=== PATIENT | male | born 1970 | race Caucasian/White ===

== ENCOUNTER → 2018-09-22 | Outpatient (CLI) | payer BC ==
--- NOTE | 2018-09-23 08:38 | ECHOF ---
Referral Reason:I25.6 MEASUREMENTS -------- HEIGHT: 190.5 cm WEIGHT: 124.7 kg BP: 128/59 RVIDd: 3.3 cm (< 3.3) IVSd: 1.4 cm (0.6 - 1.1) LVIDd: 4.4 cm (3.9 - 5.3) LVPWd: 1.4 cm (0.6 - 1.1) IVSs: 2.0 cm LVIDs: 2.8 cm LVPWs: 1.9 cm LA Diam: 3.7 cm (2.7 - 3.8) LAESV Index (A-L): 22.68 ml/m Ao Diam: 3.4 cm (2.0 - 3.7) AV Cusp: 2.4 cm (1.5 - 2.6) MV EXCURSION: 17.354 mm (> 18.000) MV EF SLOPE: 119 mm/s (70 - 150) EPSS: 0.3 cm MV E Sigifredo: 0.69 m/s MV DecT: 208 ms MV A Sigifredo: 0.56 m/s MV E/A Ratio: 1.23 FINDINGS -------- Sinus rhythm. This was a technically good study. The left ventricular size is normal. There is moderate concentric left ventricular hypertrophy. O verall left ventricular systolic function is normal with, an EF between 55 - 60 %. The right ventricle is mildly enlarged. Normal LA size by volume 22+/-6 ml/m2. The right atrium is normal in size. Aortic valve is trileaflet and is mildly thickened. The mitral valve is normal. The tricuspid valve appears structurally normal. Trace/mild (physiologic) pulmonic regurgitation. The aortic root size is normal. IVC Not well visulized. There is no pericardial effusion. CONCLUSIONS -------- 1. Sinus rhythm. 2. This was a technically good study. 3. The left ventricular size is normal. 4. There is moderate concentric left ventricular hypertrophy. 5. Overall left ventricular systolic function is normal with, an EF between 55 - 60 %. 6. The right ventricle is mildly enlarged. 7. Normal LA size by volume 22+/-6 ml/m2. 8. The right atrium is normal in size. 9. Aortic valve is trileaflet and is mildly thickened. 10. The mitral valve is normal. 11. The tricuspid valve appears structurally normal. 12. Trace/mild (physiologic) pulmonic regurgitation. 13. The aortic root size is normal. 14. IVC Not well visulized. 15. There is no pericardial effusion. TRIAL MANAGEMENT ASSOCIATE: Briana Miguel RDCS
== END | disposition home or self-care (01) ==
LOC: RADECHMAIN 16:40
PROVIDERS: ATTEND Family Medicine
DX: I37.1 Nonrheumatic pulmonary valve insufficiency (principal); I51.7 Cardiomegaly; I35.8 Other nonrheumatic aortic valve disorders
CPT/HCPCS: 93306

== ENCOUNTER 2019-08-21 08:28 | Day surgery (SDC) | payer BC ==
[2019-08-16 18:01] VITALS: BMI 34.3
[~2019-08-21 08:28] MED LIST: LACTATED RINGERS 1,000 ML IV SCH; LIDOCAINE 1% 20 ML VIAL (10MG/ML) FOR IV START INTRADERMA PRN
[2019-08-21 08:44] VITALS: TEMP 97.4
[2019-08-21] MEDS ORDERED: PROPOFOL 10 MG/ML 20 ML VIAL IV ONE (09:02)
--- NOTE | 2019-08-21 09:58 | P.PCN ---
Date of Procedure: 08/21/19 Description of Procedure: BRIEF HISTORY: 49-year-old male with Crohn's disease of the small enlarged bowel complicated by stricturing disease in the past with 3 prior surgeries including a subtotal colectomy after initial diagnosis and 2002. Patient has known stricturing and narrowing of the distal small bowel and last colonoscopy 3 years ago did show anastomotic site stenosis with some ulcerations and biopsies showing chronic colitis. He has been treated in the past few months with Xifaxan for suspected Cipro with improvement of his symptoms. Currently the patient is on treatment with azathioprine. He is undergoing evaluation including colonoscopy, MR enterography laboratory evaluation. PROCEDURE PERFORMED: Colonoscopy with polypectomy, biopsy and clip placement. PREOPERATIVE DIAGNOSIS: Crohn's disease, last colonoscopy 2016. ESTIMATED BLOOD LOSS: Minimal. IV sedation per Anesthesia. PROCEDURE: After informed consent was obtained, the patient, was brought into the endoscopy unit. IV sedation was administered by Anesthesia under continuous monitoring. D igital rectal examination was normal. Initially the Olympus CF-190 flexible video colonoscope was then inserted in the rectum, gradually advanced into the the small bowel without any difficulty. Careful examination was performed as the scope was gradually being withdrawn. Prep was excellent. Mucosa of the ascending colon, transverse colon, descending colon, sigmoid colon, and rectum appeared normal. The patients ileocolonic anastomotic site with only minimal inflammation. Just proximal to the anastomotic site the small bowel was stenosed and the scope could not be passed any further into the small bowel. Biopsies were taken of the distal and neoterminal ileum as well as every 10 cm starting at 70 cm from the anal verge and every 10 cm and 10 cm from the anal verge. Distal rectal some inflamed tissue suggestive of a pseudopolyp was seen with hot snare polypectomy performed and clip placement use for hemostasis due to bleeding from the site. Retroflexion was performed in the rectum and no lesions were seen. The patient tolerated the procedure well. IMPRESSION: Patent anastomotic site, with narrowing/stricture in the distal neoterminal ileum. Biopsies of the neoterminal ileum and every 10 cm starting from 70 cm from the anal verge. Suspected pseudopolyp in the rectum removed with hot snare polypectomy. Clip placed for hemostasis RECOMMENDATIONS: Findings of this examination were discussed with the patient in his mother. Okay to resume diet at this time. Continue medical management. Await pathology from biopsies and polypectomy. MR enterography in order as well as lab work. Follow-up in gastroenterology clinic as scheduled.
[2019-08-21 10:07] VITALS: BP 104/66; PULSE 57; RESP 16
== END 2019-08-21 10:42 | disposition home or self-care (01) ==
LOC: ORWHC2ENDO 08:28
PROVIDERS: ATTEND Internal Medicine
DX: K50.90 Crohn's disease, unspecified, without complications (principal); K62.1 Rectal polyp; Z90.49 Acquired absence of other specified parts of digestive tract; I25.2 Old myocardial infarction; I10 Essential (primary) hypertension; E78.5 Hyperlipidemia, unspecified; Z79.82 Long term (current) use of aspirin; Z79.899 Other long term (current) drug therapy
CPT/HCPCS: 88305; 45382; 45380; 45385; J2704

== ENCOUNTER → 2020-10-08 | Day surgery (SDC) | payer BC ==
[~2020-10-08] MED LIST changes: +GLUCAGON 1 MG/ML VIAL IM STA; -LACTATED RINGERS 1,000 ML IV SCH; -LIDOCAINE 1% 20 ML VIAL (10MG/ML) FOR IV START INTRADERMA PRN
[2020-10-08 09:32] VITALS: BP 134/74; PULSE 78; RESP 18; TEMP 98.1
== END ==
LOC: RADMRIMAIN 08:15
PROVIDERS: ATTEND Internal Medicine
DX: Z53.9 Procedure and treatment not carried out, unspecified reason (principal)

== ENCOUNTER → 2023-02-08 | Outpatient (CLI) | payer BC ==
--- NOTE | 2023-02-08 22:08 | US ---
EXAMINATION TYPE: US kidneys/renal and bladder DATE OF EXAM: 02/08/2023 COMPARISON: CT abdomen and pelvis 2011. CLINICAL HISTORY: R31.1 microscopic hematuria. microscopic hematuria EXAM MEASUREMENTS: Right Kidney: 12.2 x 6.6 x 4.9 cm Left Kidney: 11.9 x 6.1 x 4.9 cm Right Kidney: no evidence of hydronephrosis Left Kidney: no evidence of hydronephrosis Bladder: not fully distended Bilateral Jets seen: no There is no evidence for hydronephrosis at this point in time. No nephrolithiasis is seen. No marcello s are identified. The urinary bladder is not greatly distended and is thus suboptimally evaluated. Bilateral ureteral jets are not seen. IMPRESSION: Source of microscopic hematuria not identified. If symptoms of hematuria persist further investigation with CT urogram would be warranted.
== END | disposition home or self-care (01) ==
LOC: RADUSWWP 15:37
PROVIDERS: ATTEND Urology
DX: R31.1 Benign essential microscopic hematuria (principal)
CPT/HCPCS: 76770

== ENCOUNTER 2023-11-02 09:33 | Inpatient (IN) | payer BC ==
[2023-11-02] MEDS ORDERED: SODIUM CHLORIDE 0.9% 1,000 ML IV STA (10:45)
[2023-11-02] MEDS ORDERED: ONDANSETRON 4 MG/2 ML VIAL IVP STA (10:45)
[2023-11-02 11:10] LABS: Basophils # (A) 0.1 k/uL (0-0.2); Basophils % (A) 1 %; Eosinophils # (A) 0.1 k/uL (0-0.7); Eosinophils % (A) 1 %; HCT 46.4 % (39.0-53.0); HGB 15.6 gm/dL (13.0-17.5); Lymphocytes # (A) 1.5 k/uL (1.0-4.8); Lymphocytes % (A) 15 %; MCH 32.8 pg (25.0-35.0); MCHC 33.6 g/dL (31.0-37.0); MCV 97.7 fL (80.0-100.0); Monocytes # (A) 0.7 k/uL (0-1.0); Monocytes % (A) 7 %; Neutrophils # (A) 7.2 k/uL (1.3-7.7); Neutrophils % (A) 74 %; Platelet Count 371 k/uL (150-450); RBC 4.75 m/uL (4.30-5.90); RDW 12.8 % (11.5-15.5); WBC 9.7 k/uL (3.8-10.6)
[2023-11-02 11:30] LABS: Appearance,Urine Clear (Clear); Bilirubin,Urine Negative (Negative); Blood,Urine Negative (Negative); Color,Urine Yellow; Glucose,Urine (UA) Negative (Negative); Ketones,Urine Trace (Negative); Leukocyte Esterase,Urine Negative (Negative); Nitrite,Urine Negative (Negative); PH, Urine 6.5 (5.0-8.0); Protein,Urine Trace (Negative); Specific Gravity,Urine 1.021 (1.001-1.035); Urobilinogen,Urine <2.0 mg/dL (<2.0)
[2023-11-02 11:39] LABS: ALT 27 U/L (4-49); AST 65 U/L (17-59); African American GFR (CKD) >90 (>60 ml/min/1.73 sqM); Albumin 4.4 g/dL (3.5-5.0); Alkaline Phosphatase 55 U/L (38-126); Amylase 43 U/L (30-110); Anion Gap 11 mmol/L; Blood Urea Nitrogen 6 mg/dL (9-20); Calcium 9.6 mg/dL (8.4-10.2); Carbon Dioxide 24 mmol/L (22-30); Chloride 103 mmol/L (98-107); Glucose 105 mg/dL (74-99); Lipase 38 U/L (23-300); Non-African American GFR(CKD) >90 (>60 ml/min/1.73 sqM); Sodium 138 mmol/L (137-145); Total Bilirubin 1.3 mg/dL (0.2-1.3); Total Protein 7.8 g/dL (6.3-8.2)
[2023-11-02 11:47] LABS: Potassium 5.4 mmol/L (3.5-5.1)
--- NOTE | 2023-11-02 14:59 | CT ---
EXAMINATION TYPE: CT abdomen pelvis w con CT DLP: 1914.6 mGycm, Automated exposure control for dose reduction was used. DATE OF EXAM: 11/02/2023 12:29 PM COMPARISON: CLINICAL INDICATION:Male, 53 years old with history of pain; Vomitting TECHNIQUE: Axial CT of the abdomen and pelvis. Sagittal and coronal reformats were created on a [employer] workstation. Contrast used:100 ml mL of Isovue 300 with IV Contrast, (none if empty) Oral contrast used: without Oral Contrast (none if empty) FINDINGS: LOWER CHEST: Mild bibasilar atelectasis. Normal heart size. ABDOMEN LIVER AND BILIARY: Status post cholecystectomy. A couple small foci of pneumobilia are seen towards t he central liver. Bile ducts do not appear dilated. Portal veins are enhancing. Unremarkable hepatic parenchyma. PANCREAS: Diffuse fatty infiltration without acute finding. SPLEEN: Unremarkable. ADRENAL GLANDS: Unremarkable. KIDNEYS AND URETERS: Kidneys enhance symmetrically. No evidence of hydronephrosis or visible renal ca lculus. The ureters are unremarkable. PELVIS BLADDER: Incompletely distended but grossly unremarkable. REPRODUCTIVE: Mildly prominent prostate, measures 4.5 cm transverse. ABDOMEN & PELVIS STOMACH AND BOWEL: Stomach is nondistended. There is fluid and gas seen in the duodenal sweep, which courses broadly into the right abdomen. Close to the level of the pancreas, there is some ill-defined lobular fatty attenuation associated with the duodenum which could be reflective of lipoma. No assoc iated obstruction. Distal duodenum is grossly unremarkable. There are thereafter multiple loops of di stended fluid filled small bowel bowel in the left and mid abdomen, and upper pelvis. There seems to be transition point from dilated to nondilated bowel in the upper pelvis anteriorly. There are postop erative changes with ileocolonic anastomosis on the right. Appendix not identified. There is scattere d stool throughout the colon without focal abnormality seen. Additional anastomosis seen in the dista l sigmoid region. Prominent perirectal fat noted extending distal to this. PERITONEUM/RETROPERITONEUM: No evidence of pneumoperitoneum or free fluid. VASCULATURE: Aorta and major branches are grossly unremarkable. No AAA. MUSCULOSKELETAL: Moderate degenerative changes throughout the spine. No clearly acute bony abnormalit y. LYMPH NODES: No gross evidence for lymphadenopathy. SOFT TISSUE/ABDOMINAL WALL: Small fat-containing inguinal hernias, left larger than right. IMPRESSION: 1. Postoperative changes involving the small bowel and colon, as above. 2. Findings consistent with small bowel obstruction, with fluid distention of several mid to distal small bowel loops measuring up to 9 cm diameter. Transition point is suggested in the anterior upper pelvis, could be due to adhesions. 3. Status post cholecystectomy. A couple of small foci of pneumobilia.
--- NOTE | 2023-11-02 15:46 | ED ---
Nausea/Vomiting/Diarrhea HPI - General Chief complaint: Nausea/Vomiting/Diarrhea Stated complaint: vomiting Time Seen by Provider: 11/02/23 10:40 Source: patient, RN notes reviewed Mode of arrival: ambulatory Limitations: no limitations - History of Present Illness Initial comments: Patient is a 51-year-old male presented to ER with chief complaint of abdominal cramping. Patient does have a past medical history significant of Crohn's and has had multiple bowel resections in the past. Patient is currently following up with Dr. Bentley. Patient states going on and off for the past 3 months. He reports that for the past 3 minutes he has been having intermittent abdominal cramping. He states that he has been able to have small bowel movements and has been passing a small amount of gas. He reports his abdomen is slightly more distended than usual. Patient denies any fevers, chills, night sweats. - Related Data Home Medications Medication Instructions Recorded Confirmed Aspirin [Adult Low Dose Aspirin EC] 81 mg PO DAILY 08/16/19 11/02/23 azaTHIOprine [Imuran] 100 mg PO DAILY 08/16/19 11/02/23 Ciprofloxacin HCl [Cipro] 500 mg PO BID 11/02/23 11/02/23 Cyanocobalamin [Vitamin B-12 1,000 mcg IM SA 11/02/23 11/02/23 Injection] Dicyclomine [Bentyl] 20 mg PO Q8H PRN 11/02/23 11/02/23 Ergocalciferol [Vitamin D2 (1250 1,250 mcg PO FR 11/02/23 11/02/23 Mcg = 29386 Iu)] Metoprolol Succinate (ER) [Toprol 12.5 mg PO DAILY 11/02/23 11/02/23 Xl] Pravastatin Sodium 80 mg PO DAILY 11/02/23 11/02/23 metroNIDAZOLE [Flagyl] 500 mg PO TID 11/02/23 11/02/23 Allergies Allergy/AdvReac Type Severity Reaction Status Date / Time No Known Allergies Allergy Verified 11/02/23 17:46 Review of Systems ROS Statement: Those systems with pertinent positive or pertinent negative responses have been documented in the HPI. ROS Other: All systems not noted in ROS Statement are negative. Past Medical History Past Medical History: Hyperlipidemia, Hypertension, Myocardial Infarction (DE) Additional Past Medical History / Comment(s): hx of Crohn's, states silent DE Last Myocardial Infarction Date:: unknown History of Any Multi-Drug Resistant Organisms: None Reported Past Surgical History: Bowel Resection, Hernia Repair, Orthopedic Surgery Additional Past Surgical History / Comment(s): knee sx for lon-schlatter, hand sx, has had colostomy in past and reversal Past Anesthesia/Blood Transfusion Reactions: No Reported Reaction Past Psychological History: No Psychological Hx Reported Smoking Status: Never smoker Past Alcohol Use History: None Reported Past Drug Use History: None Reported General Exam Limitations: no limitations General appearance: alert, in no apparent distress Head exam: Present: atraumatic, normocephalic, normal inspection Respiratory exam: Present: normal lung sounds bilaterally. Absent: respiratory distress, wheezes, rales, rhonchi, stridor Cardiovascular Exam: Present: regular rate, normal rhythm, normal heart sounds. Absent: systolic murmur, diastolic murmur, rubs, gallop, clicks GI/Abdominal exam: Present: soft, distended (Mildly distended), normal bowel sounds Neurological exam: Present: alert, oriented X3, CN II-XII intact Psychiatric exam: Present: normal affect, normal mood Skin exam: Present: warm, dry, intact, normal color. Absent: rash Course Vital Signs 11/02/23 11/02/23 11/02/23 09:59 12:48 15:39 Temperature 98.4 F Pulse Rate 90 64 65 Respiratory 20 18 18 Rate Blood Pressure 125/84 109/71 125/79 O2 Sat by Pulse 99 98 97 Oximetry Medical Decision Making - Medical Decision Making Was pt. sent in by a medical professional or institution (, PA, REINFORCING BAR SETTER, urgent care, hospital, or long-term...) When possible be specific @ -No Did you speak to anyone other than the patient for history (EMS, parent, family, police, friend...)? What history was obtained from this source @ -No Did you review nursing and triage notes (agree or disagree)? Why? @ -I reviewed and agree with nursing and triage notes Were old charts reviewed (outside hosp., previous admission, EMS record, old EKG, old radiological studies, urgent care reports/EKG's, long-term records)? Report findings @ -No old charts were reviewed Differential Diagnosis (chest pain, altered mental status, abdominal pain women, abdominal pain men, vaginal bleeding, weakness, fever, dyspnea, syncope, headache, dizziness, GI bleed, back pain, seizure, CVA, palpatations, mental health, musculoskeletal)? @ -Differential Abdominal Pain Men: Appendicitis, cholecystitis, diverticulosis, ischemic bowel, pancreatitis, hepatitis, UTI, gastroenteritis, AAA, incarcerated hernia, bowel obstruction, constipation, inflammatory bowel, hepatitis, peptic ulcer disease, splenic infarction, perforated viscus, testicular torsion, this is not meant to be an all-inclusive list EKG interpreted by me (3pts min.). @ -None X-rays interpreted by me (1pt min.). @ -None done CT interpreted by me (1pt min.). @ -CT abdomen and pelvis shows findings consistent with a small bowel obstruction. Fluid distention of several mild to distal small bowel loops measuring up to 9 cm in diameter. Transition point is suggested in the anterior upper pelvis. Status post cholecystectomy couple small foci of pneumobilia. Also postoperative changes involving the small bowel and colon. U/S interpreted by me (1pt. min.). @ -None done What testing was considered but not performed or refused? (CT, X-rays, U/S, labs)? Why? @ -None What meds were considered but not given or refused? Why? @ -None Did you discuss the management of the patient with other professionals (professionals i.e. , PA, REINFORCING BAR SETTER, lab, RT, psych nurse, social worker school, family lawyer, teacher, booking officer, case managers)? Give summary @ -Yes, I discussed this case with Dr. Escobar who stated that he could perform surgery. I also spoke with Dr. Wade and Dr. Bryant for medical admission. Was smoking cessation discussed for >3mins.? @ -No Was critical care preformed (if so, how long)? @ -No Were there social determinants of health that impacted care today? How? (Homelessness, low income, unemployed, alcoholism, drug addiction, transportat ion, low edu. Level, literacy, decrease access to med. care, long term, rehab)? @ -No Was there de-escalation of care discussed even if they declined (Discuss DNR or withdrawal of care, Hospice)? DNR status @ -No What co-morbidities impacted this encounter? (DM, HTN, Smoking, COPD, CAD, Cancer, CVA, ARF, Chemo, Hep., AIDS, mental health diagnosis, sleep apnea, morbid obesity)? @ -Crohn's, hypertension, hyperlipidemia Was patient admitted / discharged? Hospital course, mention meds given and route, prescriptions, significant lab abnormalities, going to OR and other pertinent info. @ -Admitted. Patient is a 53 year old male presenting to the ER with chief complaint of abdominal cramping. Upon examination patient's vital signs are stable. Physical exam was significant for normal bowel sounds and generalized tenderness to palpation. Labs obtained in the ER was significant for hyperkalemia at 5.4. CT showed findings consistent with a small bowel obstruction. Fluid distention of several mild to distal small bowel loops measuring up to 9 cm in diameter. Tra nsition point is suggested in the anterior upper pelvis. Status post cholecystectomy couple small foci of pneumobilia. Also postoperative changes involving the small bowel and colon. Patient received IV fluids and zofran for symptom control in the ER. I spoke with Dr. Escobar who stated he could perform a laparotomy to correct obstruction. He also stated that an outside facility may be able to perform this laparoscopically and asked me to see what the patient with like to do. I discussed with the patient laboratory and CT findings. Patient was informed on his option for transfer or admission and the risks to benefit ratio. Patient decided to be admitted here for surgical consultation an d further care. Dr. Bryant excepted patient for medical admission. Dr. Bentley will be on consult. Patient will be admitted to medicine with Gen. surgery and Dr. Bentley on consult. Patient expressed understanding and agreement with care plan. Undiagnosed new problem with uncertain prognosis? @ -No Drug Therapy requiring intensive monitoring for toxicity (Heparin, Nitro, Insulin, Cardizem)? @ -No Were any procedures done? @ -No Diagnosis/symptom? @ -Small bowel obstruction Acute, or Chronic, or Acute on Chronic? @ -Acute Uncomplicated (without systemic symptoms) or Complicated (systemic symptoms)? @ -Complicated Side effects of treatment? @ -No Exacerbation, Progression, or Severe Exacerbation? @ -No Poses a threat to life or bodily function? How? (Chest pain, [place], [place], pneumonia, PE, COPD, DKA, ARF, appy, cholecystitis, CVA, Diverticulitis, Homicidal, Suicidal, threat to staff... and all critical care pts) @ -Yes, small bowel obstruction can turn into perforated bowel which may be life threatening. - Lab Data Result diagrams: 11/02/23 10:50 11/02/23 10:50 Lab Results 11/02/23 11/02/23 11/02/23 Range/Units 10:50 10:50 10:50 WBC 9.7 (3.8-10.6) k/uL RBC 4.75 (4.30-5.90) m/uL Hgb 15.6 (13.0-17.5) gm/dL Hct 46.4 (39.0-53.0) % MCV 97.7 (80.0-100.0) fL MCH 32.8 (25.0-35.0) pg MCHC 33.6 (31.0-37.0) g/dL RDW 12.8 (11.5-15.5) % Plt Count 371 (150-450) k/uL MPV 8.0 Neutrophils % 74 % Lymphocytes % 15 % Monocytes % 7 % Eosinophils % 1 % Basophils % 1 % Neutrophils # 7.2 (1.3-7.7) k/uL Lymphocytes # 1.5 (1.0-4.8) k/uL Monocytes # 0.7 (0-1.0) k/uL Eosinophils # 0.1 (0-0.7) k/uL Basophils # 0.1 (0-0.2) k/uL Sodium 138 (137-145) mmol/L Potassium 5.4 H (3.5-5.1) mmol/L Chloride 103 (98-107) mmol/L Carbon Dioxide 24 (22-30) mmol/L Anion Gap 11 mmol/L BUN 6 L (9-20) mg/dL Creatinine 0.81 (0.66-1.25) mg/dL Est GFR (CKD-EPI)AfAm >90 (>60 ml/min/1.73 sqM) Est GFR (CKD-EPI)NonAf >90 (>60 ml/min/1.73 sqM) Glucose 105 H (74-99) mg/dL Plasma Lactic Acid Rory (0.7-2.0) mmol/L Calcium 9.6 (8.4-10.2) mg/dL Total Bilirubin 1.3 (0.2-1.3) mg/dL AST 65 H (17-59) U/L ALT 27 (4-49) U/L Alkaline Phosphatase 55 (38-126) U/L Total Protein 7.8 (6.3-8.2) g/dL Albumin 4.4 (3.5-5.0) g/dL Amylase 43 (30-110) U/L Lipase 38 (23-300) U/L Urine Color Yellow Urine Appearance Clear (Clear) Urine pH 6.5 (5.0-8.0) Ur Specific [place] 1.021 (1.001-1.035) Urine Protein Trace H (Negative) Urine Glucose (UA) Negative (Negative) Urine Ketones Trace H (Negative) Urine Blood Negative (Negative) Urine Nitrite Negative (Negative) Urine Bilirubin Negative (Negative) Urine Urobilinogen <2.0 (<2.0) mg/dL Ur Leukocyte Esterase Negative (Negative) 11/02/23 Range/Units 10:50 WBC (3.8-10.6) k/uL RBC (4.30-5.90) m/uL Hgb (13.0-17.5) gm/dL Hct (39.0-53.0) % MCV (80.0-100.0) fL MCH (25.0-35.0) pg MCHC (31.0-37.0) g/dL RDW (11.5-15.5) % Plt Count (150-450) k/uL MPV Neutrophils % % Lymphocytes % % Monocytes % % Eosinophils % % Basophils % % Neutrophils # (1.3-7.7) k/uL Lymphocytes # (1.0-4.8) k/uL Monocytes # (0-1.0) k/uL Eosinophils # (0-0.7) k/uL Basophils # (0-0.2) k/uL Sodium (137-145) mmol/L Potassium (3.5-5.1) mmol/L Chloride (98-107) mmol/L Carbon Dioxide (22-30) mmol/L Anion Gap mmol/L BUN (9-20) mg/dL Creatinine (0.66-1.25) mg/dL Est GFR (CKD-EPI)AfAm (>60 ml/min/1.73 sqM) Est GFR (CKD-EPI)NonAf (>60 ml/min/1.73 sqM) Glucose (74-99) mg/dL Plasma Lactic Acid Rory 1.6 (0.7-2.0) mmol/L Calcium (8.4-10.2) mg/dL Total Bilirubin (0.2-1.3) mg/dL AST (17-59) U/L ALT (4-49) U/L Alkaline Phosphatase (38-126) U/L Total Protein (6.3-8.2) g/dL Albumin (3.5-5.0) g/dL Amylase (30-110) U/L Lipase (23-300) U/L Urine Color Urine Appearance (Clear) Urine pH (5.0-8.0) Ur Specific [place] (1.001-1.035) Urine Protein (Negative) Urine Glucose (UA) (Negative) Urine Ketones (Negative) Urine Blood (Negative) Urine Nitrite (Negative) Urine Bilirubin (Negative) Urine Urobilinogen (<2.0) mg/dL Ur Leukocyte Esterase (Negative) - Radiology Data Radiology results: report reviewed, image reviewed Disposition Clinical Impression: Small bowel obstruction Disposition: ADMITTED IP TO THIS [facility] Condition: Stable Time of Disposition: 15:45
[2023-11-02] MEDS ORDERED: NALOXONE 0.4 MG/ML 1 ML VIAL IV PRN (17:09)
[2023-11-02] MEDS: SODIUM CHLORIDE 0.9% 1,000 ML IV SCH (19:36)
[2023-11-02] MEDS: ONDANSETRON 4 MG/2 ML VIAL IVP PRN (19:39)
[2023-11-02] MEDS: HYDROmorphone 0.5 MG/0.5 ML SYRINGE IVP PRN (20:50)
--- NOTE | 2023-11-02 23:24 | P.HPIM ---
History of Present Illness H&P Date: 11/02/23 Patient is a 53-year-old male with a PMH of Crohn's disease status post multiple abdominal surgeries including colovesicular fistula, and hyperlipidemia repair who presents to the emergency room with complaints of abdominal pain with nausea and vomiting. Patient notes he has been experiencing gradually worsening intermittent nausea and vomiting over the past 2 along with cramping like diffuse abdominal discomfort. He has been following with Dr. Bentley and was doing well until this time on azathioprine. Reports that abdominal discomfort is usually after eating solid or semisolid food but that most recently he also now has discomfort with liquids. Pain is rated at a 5 out of 10 with nonbloody emesis. Has lost up to 10 pounds in the last 2 months with 3-4 episodes of bilious vomiting daily over the past few days. Reports single bowel movement daily without blood or mucus. Denies fever or chills. Also denies chest discomfort, shortness of breath. CT abdomen and pelvis revealed findings consistent with small bowel obstruction with transition point noted in the upper pelvis suspected due to adhesions. Laboratory evaluation was remarkable for hyperkalemia 5.4 (hemolyzed), lactic acid 1.6, ALT 77, AST 65 and an unremarkable UA. ED documentation reviewed and case discussed with ED provider. Review of systems: Pertinent positives and negatives as discussed in HPI, a complete review of systems was performed and all other systems are negative. Physical examination: Vital signs reviewed General: non toxic, no distress, appears at stated age, obese Derm: no unusual rashes/lesions, warm Head: atraumatic, normocephalic, symmetric Eyes: EOMI, no lid lag, anicteric sclera, pupils equal round reactive to light ENT: Nose and ears atraumatic Neck: No cervical lymphadenopathy, trachea midline, supple Mouth: no lip lesion, mucus membranes moist Cardiovascular: S1S2 reg, no murmur, positive dorsalis pedis pulse bilateral, no edema Lungs: CTA bilateral, no rhonchi, no rales, no accessory muscle use Abdominal: soft, nontender to palpation, no guarding Ext: muscle strength 5 out of 5 in all 4 extremities grossly, no gross muscle atrophy, no contractures, Neuro: CN II-XI grossly intact, no gross focal neuro deficits Psych: Alert, oriented, appropriate affect Assessment: Small bowel obstruction in setting of Crohn's disease, suspected adhesions Chronic conditions: Hyperlipidemia Imaging: CT abdomen and pelvis revealed findings consistent with small bowel obstruction with transition point noted in the upper pelvis suspected due to adhesions. Data Review: Laboratory evaluation was remarkable for hyperkalemia 5.4 (hemolyzed), lactic acid 1.6, ALT 77, AST 65 and an unremarkable UA. Plan: General surgery consulted Patient nothing by mouth for now IV fluid with normal saline 75 mL/h GI consulted Antiemetics DVT prophylaxis: Lovenox subcu The patient is admitted with an anticipated greater than 2 midnight stay for evaluation of small bowel obstruction CODE STATUS: Full Code Discussed with: Patient Anticipated discharge place: Home Past Medical History Past Medical History: Hyperlipidemia, Hypertension, Myocardial Infarction ([place]) Additional Past Medical History / Comment(s): hx of Crohn's, states silent [place] Last Myocardial Infarction Date:: unknown History of Any Multi-Drug Resistant Organisms: None Reported Past Surgical History: Bowel Resection, Cholecystectomy, Hernia Repair, O rthopedic Surgery Additional Past Surgical History / Comment(s): knee sx for lon-schlatter, hand sx, has had colostomy in past and reversal Past Anesthesia/Blood Transfusion Reactions: No Reported Reaction Past Psychological History: No Psychological Hx Reported Smoking Status: Never smoker Past Alcohol Use History: None Reported Past Drug Use History: None Reported - Past Family History Mother Family Medical History: Hyperlipidemia Medications and Allergies Home Medications Medication Instructions Recorded Confirmed Type Aspirin [Adult Low Dose Aspirin EC] 81 mg PO DAILY 08/16/19 11/02/23 History azaTHIOprine [Imuran] 100 mg PO DAILY 08/16/19 11/02/23 History Ciprofloxacin HCl [Cipro] 500 mg PO BID 11/02/23 11/02/23 History Cyanocobalamin [Vitamin B-12 1,000 mcg IM SA 11/02/23 11/02/23 History Injection] Dicyclomine [Bentyl] 20 mg PO Q8H PRN 11/02/23 11/02/23 History Ergocalciferol [Vitamin D2 (1250 1,250 mcg PO FR 11/02/23 11/02/23 History Mcg = 89315 Iu)] Metoprolol Succinate (ER) [Toprol 12.5 mg PO DAILY 11/02/23 11/02/23 History Xl] Pravastatin Sodium 80 mg PO DAILY 11/02/23 11/02/23 History metroNIDAZOLE [Flagyl] 500 mg PO TID 11/02/23 11/02/23 History Allergies Allergy/AdvReac Type Severity Reaction Status Date / Time No Known Allergies Allergy Verified 11/02/23 17:46 Physical Exam Vitals: Vital Signs Temp Pulse Pulse Resp BP BP Pulse Ox 11/02/23 20:00 98.1 F 53 L 16 132/69 98 11/02/23 19:32 98.3 F 60 18 106/81 95 11/02/23 15:39 65 18 125/79 97 11/02/23 12:48 64 18 109/71 98 11/02/23 09:59 98.4 F 90 20 125/84 99 Intake and Output 11/02/23 11/02/23 11/03/23 14:59 22:59 06:59 Other: Voiding Method Toilet Weight 115.666 kg 115.666 kg Results CBC & Chem 7: 11/02/23 10:50 11/02/23 10:50 Labs: Abnormal Lab Results - Last 24 Hours (Table) 11/02/23 11/02/23 Range/Units 10:50 10:50 Potassium 5.4 H (3.5-5.1) mmol/L BUN 6 L (9-20) mg/dL Glucose 105 H (74-99) mg/dL AST 65 H (17-59) U/L Urine Protein Trace H (Negative) Urine Ketones Trace H (Negative) Thrombosis Risk Factor Assmnt - Choose All That Apply Any of the Below Risk Factors Present?: Yes Each Factor Represents 1 point: Age 41-60 years, Obesity (BMI >25) Other Risk Factors: No Other congenital or acquired thrombophilia - If yes, enter type in comment: No Thrombosis Risk Factor Assessment Total Risk Factor Score: 2 Thrombosis Risk Factor Assessment Level: Low Risk
[2023-11-03] MEDS: ONDANSETRON 4 MG/2 ML VIAL IVP PRN (01:55)
[2023-11-03] MEDS: HYDROmorphone 0.5 MG/0.5 ML SYRINGE IVP PRN ×4 (01:55→17:16)
[2023-11-03] MEDS: methylPREDNISolone SOD SUCCI 40 MG/ML 1 ML VIAL IV SCH ×3 (08:24→23:13)
[2023-11-03] MEDS: ENOXAPARIN 40 MG/0.4 ML SYRINGE SQ SCH (08:24)
[2023-11-03] MEDS: ASPIRIN 81 MG PO SCH (08:25)
[2023-11-03] MEDS: azaTHIOprine 50 MG TAB PO SCH (08:25)
[2023-11-03] MEDS: METOPROLOL SUCCINATE (ER) 25 MG TAB.ER.24H PO SCH (08:25)
[2023-11-03] MEDS: SODIUM CHLORIDE 0.9% 1,000 ML IV SCH ×3 (08:25→23:13)
[2023-11-03] MEDS: PRAVASTATIN SODIUM 80 MG TAB PO SCH (09:58)
--- NOTE | 2023-11-03 10:08 | P.CONS ---
History of Present Illness - Reason for Consult Consult date: 11/03/23 Crohn's disease, small bowel obstruction Requesting physician: Tamie Taylor - Chief Complaint Abdominal pain - History of Present Illness This is a pleasant 53-year-old male with a past medical history of Crohn's disease diagnosed in 2003. During that time he had 3 surgeries with a history of stricture. He has been on Inflectra and Imuran and has been taking regularl y. Her last dose of the electrode was 10/17/2023. He follows with Dr. Bentley and last seen in the office in July of this year. He he states at that time he was doing very well however since August he is been getting worse again with on-and-off abdominal pain, nausea and vomiting. He started having cramping and pain which he rated an 8 out of 10 and vomiting yesterday. He came into the emergency department for concerns for small bowel obstruction. Last bowel movement was 12/03/2022 around 4 AM. No blood noted. States he had also seen Dr. Valencia recently for complaints of abdominal pain and she started him on Cipro and Flagyl on 10/28/2023. He denies any nausea or vomiting at this time, pain is improved and now a 5 out of 10. He had a CT of the abdomen and pelvis which reports postoperative changes involving the small bowel and colon. Findings consistent with small bowel obstruction with fluid distention of several mid to distal small bowel loops measuring up to 9 cm diameter. Transition point is suggested in the anterior upper pelvis and could be due to adhesions. Status post cholecystectomy couple of small foci of pneumobilia. Patient had an MRI in November 2022 that did show a stricture. His last colonoscopy was 08/21/[address] Osman with findings of chronic active ileitis at the terminal ileum and multiple polyps status post polypectomy. This tentatively scheduled with general surgery for exploratory laparotomy, possible bowel resection, possible ostomy. Review of Systems REVIEW OF SYSTEMS: CARDIOPULMONARY: No chest pain or shortness of breath. Gastrointestinal: Abdominal pain, mostly on the left side. Vomiting yesterday. No coffee-ground emesis. No rectal bleeding, or melena. GENITOURINARY: No dysuria or hematuria. MUSCULOSKELETAL: Reports normal range of motion. SKIN: No rashes. No jaundice. ENDOCRINE: No chills, fevers. No excessive weight gain or loss. No polydipsia or polyuria. PSYCHIATRIC: Unremarkable. NEUROLOGY: No change in mental status. Denies dizziness, headache. ENT: Vision unremarkable. CONSTITUTIONAL: No recent weight loss. No fever, chills, night sweats. Past Medical History Past Medical History: Hyperlipidemia, Hypertension, Myocardial Infarction ([place]) Additional Past Medical History / Comment(s): hx of Crohn's, states silent [place] Last Myocardial Infarction Date:: unknown History of Any Multi-Drug Resistant Organisms: None Reported Past Surgical History: Bowel Resection, Cholecystectomy, Hernia Repair, Orthopedic Surgery Additional Past Surgical History / Comment(s): knee sx for lon-schlatter, hand sx, has had colostomy in past and reversal Past Anesthesia/Blood Transfusion Reactions: No Reported Reaction Past Psychological History: No Psychological Hx Reported Smoking Status: Never smoker Past Alcohol Use History: None Reported Past Drug Use History: None Reported - Past Family History Mother Family Medical History: Hyperlipidemia Medications and Allergies Home Medications Medication Instructions Recorded Confirmed Type Aspirin [Adult Low Dose Aspirin EC] 81 mg PO DAILY 08/16/19 11/02/23 History azaTHIOprine [Imuran] 100 mg PO DAILY 08/16/19 11/02/23 History Ciprofloxacin HCl [Cipro] 500 mg PO BID 11/02/23 11/02/23 History Cyanocobalamin [Vitamin B-12 1,000 mcg IM SA 11/02/23 11/02/23 History Injection] Dicyclomine [Bentyl] 20 mg PO Q8H PRN 11/02/23 11/02/23 History Ergocalciferol [Vitamin D2 (1250 1,250 mcg PO FR 11/02/23 11/02/23 History Mcg = 08616 Iu)] Metoprolol Succinate (ER) [Toprol 12.5 mg PO DAILY 11/02/23 11/02/23 History Xl] Pravastatin Sodium 80 mg PO DAILY 11/02/23 11/02/23 History metroNIDAZOLE [Flagyl] 500 mg PO TID 11/02/23 11/02/23 History Allergies Allergy/AdvReac Type Severity Reaction Status Date / Time No Known Allergies Allergy Verified 11/02/23 17:46 Physical Exam Vitals: Vital Signs Temp Pulse Pulse Resp BP BP Pulse Ox 11/03/23 07:24 97.3 F L 60 18 119/77 94 L 11/03/23 02:00 97.6 F 51 L 16 103/63 96 11/02/23 20:00 98.1 F 53 L 16 132/69 98 11/02/23 19:32 98.3 F 60 18 106/81 95 11/02/23 15:39 65 18 125/79 97 11/02/23 12:48 64 18 109/71 98 11/02/23 09:59 98.4 F 90 20 125/84 99 Intake and Output 11/02/23 11/03/23 11/03/23 22:59 06:59 14:59 Intake Total 0 Balance 0 Intake: Oral 0 Other: Voiding Method Toilet # Voids 2 Weight 115.666 kg General appearance: The patient is alert, oriented, appears in no acute distress. HET: Head is normocephalic and atraumatic. Conjunctiva pink. Sclera anicteric. Neck: Supple without lymphadenopathy. Trachea midline. Heart: Regular. Lungs: Equal expansion, normal respiratory effort. Abdomen: Soft, abdominal tenderness, greatest on the left abdomen, mild distention. No guarding or rigidity. Skin: No rashes. No jaundice. Extremities: Normal skin color and turgor. No pedal edema. Neurological: No focal deficits. Alert and oriented x3. Results CBC & Chem 7: 11/02/23 10:50 11/02/23 10:50 Labs: Abnormal Lab Results - Last 24 Hours (Table) 11/02/23 11/02/23 Range/Units 10:50 10:50 Potassium 5.4 H (3.5-5.1) mmol/L BUN 6 L (9-20) mg/dL Glucose 105 H (74-99) mg/dL AST 65 H (17-59) U/L Urine Protein Trace H (Negative) Urine Ketones Trace H (Negative) Comments: CT of the abdomen and pelvis which reports postoperative changes involving the small bowel and colon. Findings consistent with small bowel obstruction with fluid distention of several mid to distal small bowel loops measuring up to 9 cm diameter. Transition point is suggested in the anterior upper pelvis and could be due to adhesions. Status post cholecystectomy couple of small foci of pneumobilia. Assessment and Plan (1) Crohn's disease Narrative/Plan: 53-year-old male with history of Crohn's disease diagnosed in 2003 follows with gastroenterology currently on an selective and Imuran and was doing well up until July of this year. October started having recurrent flares of abdominal pain with some nausea and vomiting. Symptoms progressively got worse which brought him into the hospital for concerns for small bowel ob struction. He does have a history of 3 previous surgeries with bowel resection and history of stricture seen on MRI in November 2022. CT abdomen and pelvis concerning for bowel obstruction, likely related to stricture. Gen. surgery following and patient is tentatively scheduled for laparotomy tomorrow. In the meantime will get a CRP and sed rate and start patient on IV steroids. Current Visit: Yes Status: Acute Code(s): K50.90 - CROHN'S DISEASE, UNSPECIFIED, WITHOUT COMPLICATIONS SNOMED Code(s): 64233641 (2) History of bowel resection Current Visit: Yes Status: Acute Code(s): Z90.49 - ACQUIRED ABSENCE OF OTHER SPECIFIED PARTS OF DIGESTIVE TRACT SNOMED Code(s): 909995998 (3) Small bowel obstruction Current Visit: Yes Status: Acute Code(s): K56.609 - UNSP INTESTNL OBST, UNSP TO PARTIAL VERSUS COMPLETE OBST SNOMED Code(s): 627873708 Plan: 1. Continue symptomatic and supportive care 2. Stat CRP, sed rate ordered 3. Solu-Medrol 20 mg IV every 8 hours 4. Keep nothing by mouth 5. Continue with recommendations from general surgery Thank you for this consultation, we will continue to follow. Dr. Daisy Bentley I agree with the dictator's note, documented as a scribe by Lizet Humphreys.
--- NOTE | 2023-11-03 10:34 | P.GSCN ---
History of Present Illness Consult date: 11/03/23 History of present illness: CHIEF COMPLAINT: Abdominal pain HISTORY OF PRESENT ILLNESS: This is a 53-year-old male with a known history of Crohn's. He follows with Dr. Bentley in the office and reports taking his Crohn's medications. Patient reports that he has been having abdominal pain for the last 3 months. He describes it as a cramping pain. The pain had worsened over the last couple a days. He had been having a lot of diarrhea reports a decreased appetite and did have episode of vomiting yesterday. His last stool was yesterday morning. He denies any blood in his stools. Patient does have a prior history of bowel resection in [address] 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 Patient reports a second bowel surgery and then colostomy reversal all within 1 year. Patient also reports having abdominal incisional hernia repair, the local hernia repair and inguinal hernia repair. Also history of cholecystectomy. Patient reports his pain is less today. He has been evaluated by GI service and has been started on IV steroids. He denies any fever or chills or sweats. Patient had computed tomography scan abdomen and pelvis reports findings consistent with small bowel obstruction with fluid distention of several mid to distal small bowel loops measuring up to 9 cm. Transition point is suggested in the anterior upper pelvis. Patient reports when they abdominal cramping occurs he can see actual distention on the left side of the abdomen. Last colonoscopy was in 2019 reports patient's anastomotic site with narrowing/stricture in the distal neoterminal ileum and suspected pseudopolyp with polypectomy and clip placement. PAST MEDICAL HISTORY: See below PAST SURGICAL HISTORY: See below MEDICATIONS: See below ALLERGIES: See below SOCIAL HISTORY: No illicit drug use. REVIEW OF SYSTEMS: CONSTITUTIONAL: Denies fever or chills. HEENT: Denies blurred vision, vision changes, or eye pain. Denies hemoptysis CARDIOVASCULAR: Denies chest pain or pressure. RESPIRATORY: No shortness of breath. GASTROINTESTINAL: See HPI for pertinent findings HEMATOLOGIC: Denies bleeding disorders. GENITOURINARY: Denies any blood in urine or increased urinary frequency. SKIN: Denies pruitis. Denies rash. PHYSICAL EXAM: VITAL SIGNS: Reviewed GENERAL: Well-developed in no acute distress. ABDOMEN: Soft. Nondistended. Currently nontender NEUROLOGIC: Alert and oriented. Cranial nerves II through XII grossly intact. LABORATORY DATA: WBC 9.7 Hgb 15.6 platelets 371 Sodium is 13 potassium is 5.4 creatinine 0.81 Lactic acid 1.6 Total bilirubin 1.3 AST 65 ALT 27 alk phos 55 Lipase 38 IMAGING: Computed tomography scan of the pelvis reports postoperative changes involving the small bowel and colon. Findings consistent with small bowel obstruction with fluid distention of several mid to distal small bowel loops measuring up to 9 cm in diameter. Transition point is suggested in the anterior upper pelvis could be due to adhesions. Status post cholecystectomy. A couple small foci of pneumobilia. ASSESSMENT: 1. Small bowel obstruction 2. Crohn's disease with exacerbation 3. History of prior bowel resection with colostomy and colostomy reversal PLAN: -Keep patient nothing by mouth -Patient seen by GI service that started patient on IV steroids -Continue IV fluids -Continue supportive care -Further recommendations forthcoming per surgeon Physician Horizontal Drill Operator note has been reviewed by physician. Signing provider agrees with the documented findings, assessment, and plan of care. I have personally seen and examined the patient, reviewed the CONTACT LENS INSPECTOR /PAs history, exam and MDM and agree with the assessment and plan as written. Based on total visit time, I have performed more than 50% of the visit. As above: Patient with significant length of narrowing at the terminal ileum. Suspect chronic stricture. Options reviewed with patient. This does not seem would be amenable to medical therapy at this time. We will proceed with exploratory laparotomy with plans for resection of the terminal ileum stricture and re-anastomosis. May require diverting loop ileostomy for protection given the intraoperative findings. Risks of bleeding, infection, leak, abscess, recurrent stricture, persistent Crohn's, short bowel syndrome, hernia, respiratory and cardiac complications reviewed. He understands and wishes to proceed. Recommend nasogastric tube placement at this time. Past Medical History Past Medical History: Hyperlipidemia, Hypertension, Myocardial Infarction ([place]) Additional Past Medical History / Comment(s): hx of Crohn's, states silent [place] Last Myocardial Infarction Date:: unknown History of Any Multi-Drug Resistant Organisms: None Reported Past Surgical History: Bowel Resection, Cholecystectomy, Hernia Repair, Orthopedic Surgery Additional Past Surgical History / Comment(s): knee sx for lon-schlatter, hand sx, has had colostomy in past and reversal Past Anesthesia/Blood Transfusion Reactions: No Reported Reaction Past Psychological History: No Psychological Hx Reported Smoking Status: Never smoker Past Alcohol Use History: None Reported Past Drug Use History: None Reported - Past Family History Mother Family Medical History: Hyperlipidemia Medications and Allergies Home Medications Medication Instructions Recorded Confirmed Type Aspirin [Adult Low Dose Aspirin EC] 81 mg PO DAILY 08/16/19 11/02/23 History azaTHIOprine [Imuran] 100 mg PO DAILY 08/16/19 11/02/23 History Ciprofloxacin HCl [Cipro] 500 mg PO BID 11/02/23 11/02/23 History Cyanocobalamin [Vitamin B-12 1,000 mcg IM SA 11/02/23 11/02/23 History Injection] Dicyclomine [Bentyl] 20 mg PO Q8H PRN 11/02/23 11/02/23 History Ergocalciferol [Vitamin D2 (1250 1,250 mcg PO FR 11/02/23 11/02/23 History Mcg = 41086 Iu)] Metoprolol Succinate (ER) [Toprol 12.5 mg PO DAILY 11/02/23 11/02/23 History Xl] Pravastatin Sodium 80 mg PO DAILY 11/02/23 11/02/23 History metroNIDAZOLE [Flagyl] 500 mg PO TID 11/02/23 11/02/23 History Allergies Allergy/AdvReac Type Severity Reaction Status Date / Time No Known Allergies Allergy Verified 11/02/23 17:46 Surgical - Exam Vital Signs Temp Pulse Resp BP Pulse Ox 98.4 F 90 20 125/84 99 11/02/23 09:59 11/02/23 09:59 11/02/23 09:59 11/02/23 09:59 11/02/23 09:59 Results - Labs 11/02/23 10:50 11/02/23 10:50 Abnormal Lab Results - Last 24 Hours (Table) 11/02/23 11/02/23 Range/Units 10:50 10:50 Potassium 5.4 H (3.5-5.1) mmol/L BUN 6 L (9-20) mg/dL Glucose 105 H (74-99) mg/dL AST 65 H (17-59) U/L Urine Protein Trace H (Negative) Urine Ketones Trace H (Negative) Diabetes panel 11/02/23 Range/Units 10:50 Sodium 138 (137-145) mmol/L Potassium 5.4 H (3.5-5.1) mmol/L Chloride 103 (98-107) mmol/L Carbon Dioxide 24 (22-30) mmol/L BUN 6 L (9-20) mg/dL Creatinine 0.81 (0.66-1.25) mg/dL Glucose 105 H (74-99) mg/dL Calcium 9.6 (8.4-10.2) mg/dL AST 65 H (17-59) U/L ALT 27 (4-49) U/L Alkaline Phosphatase 55 (38-126) U/L Total Protein 7.8 (6.3-8.2) g/dL Albumin 4.4 (3.5-5.0) g/dL Calcium panel 11/02/23 Range/Units 10:50 Calcium 9.6 (8.4-10.2) mg/dL Albumin 4.4 (3.5-5.0) g/dL Pituitary panel 11/02/23 Range/Units 10:50 Sodium 138 (137-145) mmol/L Potassium 5.4 H (3.5-5.1) mmol/L Chloride 103 (98-107) mmol/L Carbon Dioxide 24 (22-30) mmol/L BUN 6 L (9-20) mg/dL Creatinine 0.81 (0.66-1.25) mg/dL Glucose 105 H (74-99) mg/dL Calcium 9.6 (8.4-10.2) mg/dL Adrenal panel 11/02/23 Range/Units 10:50 Sodium 138 (137-145) mmol/L Potassium 5.4 H (3.5-5.1) mmol/L Chloride 103 (98-107) mmol/L Carbon Dioxide 24 (22-30) mmol/L BUN 6 L (9-20) mg/dL Creatinine 0.81 (0.66-1.25) mg/dL Glucose 105 H (74-99) mg/dL Calcium 9.6 (8.4-10.2) mg/dL Total Bilirubin 1.3 (0.2-1.3) mg/dL AST 65 H (17-59) U/L ALT 27 (4-49) U/L Alkaline Phosphatase 55 (38-126) U/L Total Protein 7.8 (6.3-8.2) g/dL Albumin 4.4 (3.5-5.0) g/dL
--- NOTE | 2023-11-03 14:44 | XR ---
EXAMINATION TYPE: XR chest 1V confirm line [facility] DATE OF EXAM: 11/03/2023 COMPARISON: None HISTORY: 53-year-old male NG tube placement TECHNIQUE: Single frontal view of the chest is obtained. FINDINGS: NG tube portable the diaphragm. The sidehole is at the junction level. Consider further ad vancement by approximately 4 cm. Heart and lungs are normal in size. Hazy densities relating to kathi ble technique and body habitus. No stefan consolidation or pleural effusion. IMPRESSION: NG tube sidehole at the GE junction level. Recommend further advancement by 4 cm.
--- NOTE | 2023-11-03 22:20 | P.PN ---
Subjective Progress Note Date: 11/03/23 Patient is a 53-year-old male with a PMH of Crohn's disease status post multiple abdominal surgeries including colovesicular fistula, and hyperlipidemia repair who presents to the emergency room with complaints of abdominal pain with nausea and vomiting. Patient notes he has been experiencing gradually worsening intermittent nausea and vomiting over the past 2 along with cramping like diffuse abdominal discomfort. He has been following with Dr. Bentley and was doing well until this time on azathioprine. Reports that abdominal discomfort is usually after eating solid or semisolid food but that most recently he also now has discomfort with liquids. Pain is rated at a 5 out of 10 with nonbloody emesis. Has lost up to 10 pounds in the last 2 months with 3-4 episodes of bilious vomiting daily over the past few days. Reports single bowel movement daily without blood or mucus. Denies fever or chills. Also denies chest discomfort, shortness of breath. CT abdomen and pelvis revealed findings consistent with small bowel obstruction with transition point noted in the upper pelvis suspected due to adhesions. Laboratory evaluation was remarkable for hyperkalemia 5.4 (hemolyzed), lactic acid 1.6, ALT 77, AST 65 and an unremarkable UA. 11/03/2023 Patient is currently lying in the bed. Awake alert and oriented x 3. NG tube is in place. Draining clear to greenish fluid. Abdominal pain is better. No complaints of nausea or vomiting. Patient has not passed flatus. Patient has been afebrile. No nausea or vomiting or diarrhea. Chest x-ray showed NG tube sidehole at GE junction level. Recommend further advancement by 4 cm. Laboratory data reviewed. General surgery and GI is on board. Current medications reviewed. Objective - Vital Signs Vital signs: Vital Signs Temp 97.5 F L 11/03/23 19:00 Pulse 59 L 11/03/23 19:00 Resp 16 11/03/23 19:00 BP 105/61 11/03/23 19:00 Pulse Ox 90 L 11/03/23 19:00 FiO2 Intake & Output 11/03/23 11/03/23 11/04/23 06:59 18:59 06:59 Intake Total 0 Output Total 1050 Balance 0 -1050 Weight 115.666 kg Intake: Oral 0 Output: Gastric Drainage 1050 Other: Voiding Method Toilet Toilet # Voids 2 - Exam PHYSICAL EXAMINATION: Patient is lying in the bed comfortably, no acute distress, awake alert and oriented.. HEENT: Normocephalic. Neck is supple. Pupils reactive. Nostrils clear. Oral cavity is moist. Neck reveals no JVD, carotid bruits, or thyromegaly. CHEST EXAMINATION: Trachea is central. Symmetrical expansion. Lung morton clear to auscultation and percussion. CARDIAC: Normal S1, S2 with no gallops. No murmurs ABDOMEN: Soft. Bowel sounds diminished. Nontender. No organomegaly. No abdominal bruits. Extremities: reveal no edema. No clubbing or cyanosis Neurologically awake, alert, oriented x3 with well-coordinated movements. No focal deficits noted Skin: No rash or skin lesions. Psychiatric: Coperative. Nonsuicidal, Musculoskeletal: No joint swelling or deformity. Normal range of motion. - Labs CBC & Chem 7: 11/02/23 10:50 11/02/23 10:50 Assessment and Plan Assessment: Acute small bowel obstruction likely due to adhesions and history 3 surgeries of prior colectomy. Crohn's disease exacerbation. on Imuron as an outpatient. GI and DVT prophylaxis Plan: Patient will be continued on IV hydration and nothing by mouth. Continue with NG tube. CRP and sed rate was ordered and patient was started on Solu-Medrol 20 mg IV every 8 hourly as per GI recommendations. General surgery is on board. Continue with conservative therapy and possible laparotomy if not improved. Continue to follow closely.
[2023-11-04] MEDS: HYDROmorphone 0.5 MG/0.5 ML SYRINGE IVP PRN ×2 (02:04→09:03)
[2023-11-04 05:43] LABS: INR 1.1 (<1.2); Partial Thromboplastin Time 23.9 sec (22.0-30.0); Prothrombin Time 11.5 sec (10.0-12.5)
[2023-11-04 05:47] LABS: African American GFR (CKD) >90 (>60 ml/min/1.73 sqM); Anion Gap 9 mmol/L; Blood Urea Nitrogen 12 mg/dL (9-20); Calcium 8.6 mg/dL (8.4-10.2); Carbon Dioxide 25 mmol/L (22-30); Chloride 104 mmol/L (98-107); Glucose 116 mg/dL (74-99); Non-African American GFR(CKD) >90 (>60 ml/min/1.73 sqM); Potassium 4.4 mmol/L (3.5-5.1); Sodium 138 mmol/L (137-145)
[2023-11-04 08:38] LABS: Basophils # (A) 0.01 X 10*3/uL (0.00-0.10); Basophils % (A) 0.1 %; Eosinophils # (A) 0 X 10*3/uL (0.04-0.35); Eosinophils % (A) 0 %; HCT 41.5 % (39.6-50.0); HGB 13.9 g/dL (13.0-17.0); Lymphocytes # (A) 0.72 X 10*3/uL (0.90-5.00); Lymphocytes % (A) 8.4 %; MCH 32.6 pg (27.0-32.0); MCHC 33.5 g/dL (32.0-37.0); MCV 97.2 FL (80.0-97.0); Mean Platelet Volume 9.9 FL (9.5-12.2); Monocytes # (A) 0.15 X 10*3/uL (0.20-1.00); Monocytes % (A) 1.7 %; NRBC Per 100 WBC 0 X 10*3/uL (0.00-0.01); Neutrophils # (A) 7.67 X 10*3/uL (1.80-7.70); Neutrophils % (A) 89.5 %; Platelet Count 299 X 10*3/uL (140-440); RBC 4.27 X 10*6/uL (4.40-5.60); RDW 12.5 % (11.5-14.5); WBC 8.58 X 10*3/uL (4.50-10.00)
[2023-11-04] MEDS: ASPIRIN 81 MG PO SCH (08:52)
[2023-11-04] MEDS: METOPROLOL SUCCINATE (ER) 25 MG TAB.ER.24H PO SCH (08:56)
[2023-11-04] MEDS: methylPREDNISolone SOD SUCCI 40 MG/ML 1 ML VIAL IV SCH ×3 (08:56→23:20)
[2023-11-04] MEDS: PRAVASTATIN SODIUM 80 MG TAB PO SCH (08:56)
[2023-11-04] MEDS: ENOXAPARIN 40 MG/0.4 ML SYRINGE SQ SCH (08:56)
[2023-11-04] MEDS: azaTHIOprine 50 MG TAB PO SCH (08:56)
[2023-11-04] MEDS ORDERED: HYDROmorphone 0.5 MG/0.5 ML SYRINGE IVP PRN (11:33)
[2023-11-04] MEDS ORDERED: LACTATED RINGERS 1,000 ML IV SCH (11:33)
[2023-11-04] MEDS ORDERED: DEXAMETHASONE SOD PHOSPHATE 4 MG/ML 1 ML VIAL IV ONE (11:33)
[2023-11-04] MEDS ORDERED: droPERidol 5 MG/2 ML VIAL IVP ONE (11:33)
[2023-11-04] MEDS ORDERED: LIDOCAINE 1% (10MG/ML) FOR IV START INTRADERMA PRN (11:33)
[2023-11-04] MEDS ORDERED: ONDANSETRON 4 MG/2 ML VIAL IVP PRN (11:33)
[2023-11-04] MEDS ORDERED: LACTATED RINGERS 1,000 ML IV ONE ×2 (12:04→15:23)
[2023-11-04] MEDS ORDERED: fentaNYL (PF) 50 MCG/ML 2 ML AMP IVP ONE (12:39)
[2023-11-04] MEDS ORDERED: MIDAZOLAM 2 MG/2 ML VIAL IVP ONE (12:39)
--- NOTE | 2023-11-04 13:14 | P.ANPRN ---
Procedure Note - Anesthesia - Nerve Block Performed Bilateral Erector Spinae Single Time Out Performed: Yes Date of Procedure: 11/04/23 Procedure Start Time: 12:38 Procedure Stop Time: 12:50 Location of Patient: PreOp Indication: Acute Post-Operative Pain, Requested by Surgeon Sedation Type: Sedate with meaningful contact maintained Preparation: Sterile Prep, Sterile Dressing Position: Prone Catheter: None Needle Types: Facet Needle Gauge: 20 Ultrasound used to visualize needle placement: Yes Ultrasound used to observe medication spread: Yes Injectate: Other (see comment) (Ropivacaine 0.25% w/ decadron 2 mg 30 ml per side) Blood Aspirated: No Pain Paresthesia on Injection Noted: No Resistance on Injection: Normal Image Stored and Saved: Yes Events: Uneventful and Well Tolerated
[2023-11-04] MEDS ORDERED: metroNIDAZOLE-NS PMX 500 MG in SALINE 1 100ML.BAG IVPB STA (13:16)
[2023-11-04] MEDS ORDERED: PHENYLEPHRINE-0.9% NACL SYG 1,000 MCG/10 ML SYRINGE ONE (13:45)
[2023-11-04] MEDS ORDERED: GLYCOPYRROLATE 0.2 MG/ML 2 ML VIAL ONE (13:45)
[2023-11-04] MEDS ORDERED: SODIUM CHLORIDE 0.9% (PF) 10 ML VIAL ONE (13:45)
[2023-11-04] MEDS ORDERED: ROCURONIUM 10 MG/ML (5 ML VIAL) IV ONE (13:45)
[2023-11-04] MEDS ORDERED: ePHEDrine 50 MG/ML 1 ML VIAL ONE (13:45)
[2023-11-04] MEDS ORDERED: DEXAMETHASONE SOD PHOSPHATE 4 MG/ML 1 ML VIAL ONE (13:45)
[2023-11-04] MEDS ORDERED: SUCCINYLCHOLINE CHLORIDE 200 MG/10 ML VIAL IV ONE (13:45)
[2023-11-04] MEDS ORDERED: ROPIVACAINE 5 MG/ML 30 ML VIAL ONE (13:45)
[2023-11-04] MEDS ORDERED: NEOSTIGMINE 1 MG/ML 10 ML VIAL ONE (13:45)
[2023-11-04] MEDS ORDERED: LIDOCAINE 1% INJ 10MG/ML (20 ML MDV) ONE (13:45)
[2023-11-04] MEDS ORDERED: PROPOFOL 10 MG/ML 20 ML VIAL IV ONE (13:45)
[2023-11-04] MEDS ORDERED: fentaNYL (PF) 50 MCG/ML 2 ML AMP ONE (13:45)
[2023-11-04] MEDS ORDERED: MIDAZOLAM 2 MG/2 ML VIAL ONE (13:45)
[2023-11-04] MEDS ORDERED: HYDROmorphone (PF) 1 MG/ML ONE (13:45)
--- NOTE | 2023-11-04 16:16 | P.PN ---
Subjective Progress Note Date: 11/04/23 Principal diagnosis: Small bowel obstruction, Crohn's disease This is a pleasant 53-year-old male with a past medical history of Crohn's disease diagnosed in 2003. During that time he had 3 surgeries with a history of stricture. He has been on Inflectra and Imuran and has been taking regularly. Her last dose of the electrode was 10/17/2023. He follows with Dr. Bentley and last seen in the office in July of this year. He he states at that time he was doing very well however since August he is been getting worse again with on-and-off abdominal pain, nausea and vomiting. He started having cramping and pain which he rated an 8 out of 10 and vomiting yesterday. He came into the emergency department for concerns for small bowel obstruction. Last bowel movement was 12/03/2022 around 4 AM. No blood noted. States he had also seen Dr. Valencia recently for complaints of abdominal pain and she started him on Cipro and Flagyl on 10/28/2023. He denies any nausea or vomiting at this time, pain is improved and now a 5 out of 10. He had a CT of the abdomen and pelvis which reports postoperative changes involving the small bowel and colon. Findings consistent with small bowel obstruction with fluid distention of several mid to distal small bowel loops measuring up to 9 cm diameter. Transition point is suggested in the anterior upper pelvis and could be due to adhesions. Status post cholecystectomy couple of small foci of pneumobilia. Patient had an MRI in November 2022 that did show a stricture. His last colonoscopy was 08/21/[address] Osman with findings of chronic active ileitis at the terminal ileum and multiple polyps status post polypectomy. This tentatively scheduled with general surgery for exploratory laparotomy, possible bowel resection, possible ostomy. 11/04/2023 Patient seen and examined as a follow-up for small bowel obstruction. CRP less than 0.5 and sed rate 10. NG tube is in place. NG tube with approximately 600 out in the canister. Patient states abdominal pain somewhat improved as well as bloating. No nausea or vomiting. He is scheduled for exploratory laparotomy today with Dr. Escobar. Objective - Vital Signs Vital signs: Vital Signs Temp 97.4 F L 11/04/23 07:07 Pulse 74 11/04/23 07:07 Resp 18 11/04/23 07:07 BP 111/74 11/04/23 07:07 Pulse Ox 94 L 11/04/23 07:07 FiO2 Intake & Output 11/03/23 11/04/23 11/04/23 18:59 06:59 18:59 Intake Total 900 Output Total 1050 Balance -1050 900 Intake: Intake, IV Titration 900 Amount Sodium Chloride 0.9% 1, 900 000 ml @ 75 mls/hr IV . [id number] [facility] Rx#:[id number] Oral 0 Output: Gastric Drainage 1050 Other: Voiding Method Toilet # Voids 3 - Exam General appearance: The patient is alert, oriented, appears in no acute distress. HET: Head is normocephalic and atraumatic. Conjunctiva pink. Sclera anicteric. NG tube in place. Neck: Supple without lymphadenopathy. Abdomen: Soft, mild tenderness, nondistended. No guarding or rigidity. Extremities: Normal skin color and turgor. No pedal edema Skin: No rashes, no jaundice Neurological: No focal deficits. Alert and oriented. - Labs CBC & Chem 7: 11/04/23 04:40 11/04/23 04:40 Labs: Abnormal Lab Results - Last 24 Hours (Table) 11/04/23 11/04/23 Range/Units 04:40 04:40 RBC 4.27 L (4.40-5.60) X 10*6/uL MCV 97.2 H (80.0-97.0) FL MCH 32.6 H (27.0-32.0) pg Lymphocytes # 0.72 L (0.90-5.00) X 10*3/uL Monocytes # 0.15 L (0.20-1.00) X 10*3/uL Eosinophils # 0 L (0.04-0.35) X 10*3/uL Glucose 116 H (74-99) mg/dL Assessment and Plan (1) Crohn's disease Narrative/Plan: 53-year-old male with history of Crohn's disease diagnosed in 2003 follows with gastroenterology currently on an selective and Imuran and was doing well up until July of this year. August started having recurrent flares of abdominal pain with some nausea and vomiting. Symptoms progressively got worse which brought him into the hospital for concerns for small bowel obstruction. He does have a history of 3 previous surgeries with bowel resection and history of stricture seen on MRI in November 2022. CT abdomen and pelvis concerning for bowel obstruction, likely related to stricture. Gen. surgery following and patient is tentatively scheduled for laparotomy tomorrow. In the meantime will get a CRP and sed rate and start patient on IV steroids. Current Visit: Yes Status: Acute Code(s): K50.90 - CROHN'S DISEASE, UNSPECIFIED, WITHOUT COMPLICATIONS SNOMED Code(s): 41921214 (2) History of bowel resection Current Visit: Yes Status: Acute Code(s): Z90.49 - ACQUIRED ABSENCE OF OTHER SPECIFIED PARTS OF DIGESTIVE TRACT SNOMED Code(s): 888984817 (3) Small bowel obstruction Current Visit: Yes Status: Acute Code(s): K56.609 - UNSP INTESTNL OBST, UNSP TO PARTIAL VERSUS COMPLETE OBST SNOMED Code(s): 204852923 Plan: 1. Continue symptomatic and supportive care 2. Solu-Medrol 20 mg IV every 8 hours 3. Keep nothing by mouth 4. Continue with recommendations from general surgery 5. Patient will need to follow-up with gastroenterology post hospital stay Thank you for this consultation, we will continue to follow. Dr. Daisy Bentley I agree with the dictator's note, documented as a scribe by Lizet Humphreys.
--- NOTE | 2023-11-04 17:03 | P.OP ---
Date of Procedure: 11/04/23 Procedure(s) Performed: PREOPERATIVE DIAGNOSIS: Small bowel obstruction with suspected Crohn stricture POSTOPERATIVE DIAGNOSIS: Same, extensive abdominal adhesions PROCEDURE: Exporter laparotomy, extensive lysis of adhesions, small bowel resection, diverting loop ileostomy SURGEON: Luz EBL: 50 mL ANESTHESIA: Gen. COMPLICATIONS: None OPERATIVE PROCEDURE: Patient placed on the operative table. Patient was placed under general anesthesia. Tucker catheter was placed. Midline incision was made from the supra umbilical to the superpubic location. Dissection through the saphenous tissues took place using sharp dissection and cautery. Entrance into the perineal cavity occurred. The patient had extensive adhesions from prior surgeries to the undersurface of the fascia. Lysis of adhesions took place duration over 90 minutes. No serosal tears were seen. The patient had significant proximal small bowel dilation. Some of the proximal adhesions were not addressed at this time. The patient had a mat of small bowel loops involving the distal ileum. I was able to finally dissect down to the point where I had only a short section of bowel proximal and distal to the stricture site. The stricture was shorter in length been suspected. The terminal ileum was collapsed but appeared normal and free of inflammatory changes. The bowel was divided proximally using a linear 75 green load stapler. The bowel was divided distally using a linear 75 blue load stapler. Decompression proximally took place. A ifgk-[id number]-[id number] anastomosis took place linear 75 green load stapler. The defect was closed transversely using a TX 60 green load stapler. A 3-0 GI silk crotch stitch was placed. Given the significant bowel wall thickening and chronic inflammatory change along with the patient's immunosuppression and history of Crohn's I decided to drive or proximally. A small circular incision was made in the right midabdomen. Dissection through the subcutaneous tissues and fascia took place using electrocautery. A loop of the ileum was brought proximal to the anastomosis to the abdominal wall as a loop ileostomy. The midline fascia was then reapproximated after irrigating thoroughly using 3 separate double-stranded #1 PDS sutures. The skin was closed using gary. Subcutaneous layer was closed using 3-0 Vicryl sutures. The ostomy was then matured raising a [place] proximally using interrupted 3-0 Vicryl sutures. A 20-Yakut red rubber catheter was used as a bridge and sutured in place to the skin using 3-0 silk sutures. Ostomy appliance and sterile dressing was applied. DISPOSITION: Stable to recovery room
[2023-11-04] MEDS: ACETAMINOPHEN IV (For NPO) 1,000 MG in EMPTY BAG 1 BAG IVPB SCH ×2 (18:05→23:20)
[2023-11-04] MEDS: HYDROmorphone 1 MG/ML 1 ML SYRINGE IVP PRN ×2 (18:06→23:30)
[2023-11-04] MEDS: PIPERACILLIN-TAZOBACTAM 3.375 GM in SODIUM CHLORIDE 0.9% 100 ML IVPB SCH ×2 (18:08→23:19)
[2023-11-04] MEDS: SODIUM CHLORIDE 0.9% 1,000 ML IV SCH (23:21)
[2023-11-05] MEDS: ACETAMINOPHEN IV (For NPO) 1,000 MG in EMPTY BAG 1 BAG IVPB SCH ×3 (05:11→17:04)
[2023-11-05] MEDS: HYDROmorphone 1 MG/ML 1 ML SYRINGE IVP PRN ×4 (05:36→17:03)
[2023-11-05] MEDS: PIPERACILLIN-TAZOBACTAM 3.375 GM in SODIUM CHLORIDE 0.9% 100 ML IVPB SCH ×3 (09:17→23:20)
[2023-11-05] MEDS: ASPIRIN 81 MG PO SCH (09:17)
[2023-11-05] MEDS: ENOXAPARIN 40 MG/0.4 ML SYRINGE SQ SCH (09:17)
[2023-11-05] MEDS: METOPROLOL SUCCINATE (ER) 25 MG TAB.ER.24H PO SCH (09:17)
[2023-11-05] MEDS: azaTHIOprine 50 MG TAB PO SCH (09:18)
[2023-11-05] MEDS: methylPREDNISolone SOD SUCCI 40 MG/ML 1 ML VIAL IV SCH (09:18)
[2023-11-05] MEDS: PRAVASTATIN SODIUM 80 MG TAB PO SCH (09:18)
[2023-11-05] MEDS: PANTOPRAZOLE 40 MG/10 ML VIAL IV SCH (09:18)
[2023-11-05 11:24] LABS: Blood Urea Nitrogen 13.2 mg/dL (9.0-27.0); Calcium 8.2 mg/dL (8.7-10.3); Carbon Dioxide 27.9 mmol/L (21.6-31.8); Chloride 104 mmol/L (96-109); Glucose 130 mg/dL (70-110); Potassium 4.3 mmol/L (3.5-5.5); Sodium 142 mmol/L (135-145)
[2023-11-05 11:26] LABS: Basophils # (A) 0.02 X 10*3/uL (0.00-0.10); Basophils % (A) 0.2 %; Eosinophils # (A) 0.01 X 10*3/uL (0.04-0.35); Eosinophils % (A) 0.1 %; HCT 40.5 % (39.6-50.0); Lymphocytes # (A) 0.64 X 10*3/uL (0.90-5.00); Lymphocytes % (A) 5.5 %; MCH 32.8 pg (27.0-32.0); MCHC 32.1 g/dL (32.0-37.0); MCV 102.3 FL (80.0-97.0); Mean Platelet Volume 10.1 FL (9.5-12.2); Monocytes # (A) 0.82 X 10*3/uL (0.20-1.00); Monocytes % (A) 7.1 %; NRBC Per 100 WBC 0 X 10*3/uL (0.00-0.01); Neutrophils % (A) 86.7 %; Platelet Count 283 X 10*3/uL (140-440); RBC 3.96 X 10*6/uL (4.40-5.60); RDW 12.8 % (11.5-14.5); WBC 11.54 X 10*3/uL (4.50-10.00)
--- NOTE | 2023-11-05 11:45 | P.PN ---
Subjective Progress Note Date: 11/05/23 CHIEF COMPLAINT: Small bowel obstruction with suspected Crohn stricture HISTORY OF PRESENT ILLNESS: Postop day #1 status post exploratory laparotomy, extensive lysis of adhesions, small bowel obstruction, diverting loop ileostomy. Patient reports his pain is controlled. He denies any nausea or vomiting. Bowel activity. NG tube output 400ml brownish output. Afebrile. WBC 11.5 for Hgb 13 platelets 281 sodium 142 potassium is 4.3 creatinine 1.0 OSVALDO drain with 350 ML output serosanguineous fluid PHYSICAL EXAM: VITAL SIGNS: Reviewed. GENERAL: Well-developed in no acute distress. ABDOMEN: Soft. Mildly distended. Mild tenderness at incision site incisional dressing clean dry and intact. Ileostomy with beefy red stoma. Stoma edematous. Serosanguineous output. NEUROLOGIC: Alert and oriented. Cranial nerves II through XII grossly intact. ASSESSMENT: 1. Small bowel obstruction with suspected Crohn stricture PLAN: -Keep patient nothing by mouth -Continue NG tube for decompression -Continue IV fluids -Continue antibiotics -Continue pain management -Encouraged patient to use incentive spirometer -Encouraged patient to increase activity level -DVT prophylaxis Lovenox Physician Survey Technician note has been reviewed by physician. Signing provider agrees with the documented findings, assessment, and plan of care. I have personally seen and examined the patient, reviewed the [facility] history, exam and MDM and agree with the assessment and plan as written. Based on total visit time, I have performed more than 50% of the visit. As above: Patient says he feels overall a bit better today. He is having surgical incisional pain. No significant ostomy output. Ostomy is pink. Dres sing is clean and dry. Keep nothing by mouth. Continue antibiotics. Gradually increase activity. Objective - Vital Signs Vital signs: Vital Signs Temp 98.1 F 11/05/23 07:04 Pulse 53 L 11/05/23 07:04 Resp 16 11/05/23 07:04 BP 102/63 11/05/23 07:04 Pulse Ox 95 11/05/23 07:04 FiO2 Intake & Output 11/04/23 11/05/23 11/05/23 18:59 06:59 18:59 Intake Total 2074 Output Total 1025 1350 Balance 1050 -1350 Intake: IV 2074 Output: Gastric Drainage 700 Drainage 350 Right Abdomen 350 Urine 275 1000 Uretheral (Tucker) 500 Estimated Blood Loss 50 Other: Voiding Method Indwelling Catheter Indwelling Catheter - Labs CBC & Chem 7: 11/05/23 06:18 11/05/23 06:18
--- NOTE | 2023-11-05 13:38 | P.PN ---
Subjective Progress Note Date: 11/05/23 Principal diagnosis: Small bowel obstruction, Crohn's disease This is a pleasant 53-year-old male with a past medical history of Crohn's disease diagnosed in 2003. During that time he had 3 surgeries with a history of stricture. He has been on Inflectra and Imuran and has been taking regularly. Her last dose of the electrode was 10/17/2023. He follows with Dr. Bentley and last seen in the office in July of this year. He he states at that time he was doing very well however since August he is been getting worse again with on-and-off abdominal pain, nausea and vomiting. He started having cramping and pain which he rated an 8 out of 10 and vomiting yesterday. He came into the emergency department for concerns for small bowel obstruction. Last bowel movement was 12/03/2022 around 4 AM. No blood noted. States he had also seen Dr. Valencia recently for complaints of abdominal pain and she started him on Cipro and Flagyl on 10/28/2023. He denies any nausea or vomiting at this time, pain is improved and now a 5 out of 10. He had a CT of the abdomen and pelvis which reports postoperative changes involving the small bowel and colon. Findings consistent with small bowel obstruction with fluid distention of several mid to distal small bowel loops measuring up to 9 cm diameter. Transition point is suggested in the anterior upper pelvis and could be due to adhesions. Status post cholecystectomy couple of small foci of pneumobilia. Patient had an MRI in November 2022 that did show a stricture. His last colonoscopy was 08/21/[address] Osman with findings of chronic active ileitis at the terminal ileum and multiple polyps status post polypectomy. This tentatively scheduled with general surgery for exploratory laparotomy, possible bowel resection, possible ostomy. 11/04/2023 Patient seen and examined as a follow-up for small bowel obstruction. CRP less than 0.5 and sed rate 10. NG tube is in place. NG tube with approximately 600 out in the canister. Patient states abdominal pain somewhat improved as well as bloating. No nausea or vomiting. He is scheduled for exploratory laparotomy today with Dr. Escobar. 11/05/2023 Patient seen and examined today as a follow-up. Yesterday he underwent exploratory laparotomy, extensive lysis of adhesions and small bowel resection with diverting loop ileostomy. States he has surgical discomfort. Obstruction pain seems to be low but better. Patient's afebrile. Denies any passing of flatus. WBC 11.5 hemoglobin 13 platelet count 283,000 Objective - Vital Signs Vital signs: Vital Signs Temp 97.8 F 11/05/23 02:00 Pulse 70 11/05/23 02:00 Resp 16 11/05/23 02:00 BP 105/65 11/05/23 02:00 Pulse Ox 93 L 11/05/23 02:00 FiO2 Intake & Output 11/04/23 11/04/23 11/05/23 06:59 18:59 06:59 Intake Total 900 2075 Output Total 1025 1350 Balance 900 1050 -1350 Intake: IV 2075 Intake, IV Titration 900 Amount Sodium Chloride 0.9% 1, 900 000 ml @ 75 mls/hr IV . [id number] [facility] Rx#:[id number] Oral 0 Output: Gastric Drainage 700 Drainage 350 Right Abdomen 350 Urine 275 1000 Uretheral (Tucker) 500 Estimated Blood Loss 50 Other: Voiding Method Toilet Indwelling Catheter # Voids 3 - Exam General appearance: The patient is alert, oriented, appears in no acute distress. HET: Head is normocephalic and atraumatic. Conjunctiva pink. Sclera anicteric. NG tube in place. Neck: Supple without lymphadenopathy. Abdomen: Soft, mild distention. Tenderness at incision site incisional dressing clean dry and intact. Ileostomy with beefy red stoma. Extremities: Normal skin color and turgor. No pedal edema Skin: No rashes, no jaundice Neurological: No focal deficits. Alert and oriented. - Labs CBC & Chem 7: 11/05/23 06:18 11/05/23 06:18 Labs: Abnormal Lab Results - Last 24 Hours (Table) 11/04/23 Range/Units 04:40 RBC 4.27 L (4.40-5.60) X 10*6/uL MCV 97.2 H (80.0-97.0) FL MCH 32.6 H (27.0-32.0) pg Lymphocytes # 0.72 L (0.90-5.00) X 10*3/uL Monocytes # 0.15 L (0.20-1.00) X 10*3/uL Eosinophils # 0 L (0.04-0.35) X 10*3/uL Assessment and Plan (1) Crohn's disease Narrative/Plan: 53-year-old male with history of Crohn's disease diagnosed in 2003 follows with gastroenterology currently on an selective and Imuran and was doing well up until July of this year. August started having recurrent flares of abdominal pain with some nausea and vomiting. Symptoms progressively got worse which brought him into the hospital for concerns for small bowel obstruction. He does have a history of 3 previous surgeries with bowel resection and history of stricture seen on MRI in November 2022. CT abdomen and pelvis concerning for bowel obstruction, likely related to stricture. Gen. surgery following and patient is tentatively scheduled for laparotomy tomorrow. In the meantime will get a CRP and sed rate and start patient on IV steroids. Current Visit: Yes Status: Acute Code(s): K50.90 - CROHN'S DISEASE, UNSPECIFIED, WITHOUT COMPLICATIONS SNOMED Code(s): 19113033 (2) Small bowel obstruction Narrative/Plan: Patient underwent bowel resection yesterday with ileostomy Current Visit: Yes Status: Acute Code(s): K56.609 - UNSP INTESTNL OBST, UNSP TO PARTIAL VERSUS COMPLETE OBST SNOMED Code(s): 603683638 (3) History of bowel resection Current Visit: Yes Status: Acute Code(s): Z90.49 - ACQUIRED ABSENCE OF OTHER SPECIFIED PARTS OF DIGESTIVE TRACT SNOMED Code(s): 187471148 Plan: 1. Continue symptomatic and supportive care 2. Discontinue Solu-Medrol 3. Patient to follow-up with Dr. Bentley mid-November, will discuss further at that time if he will resume his Inflectra 4. Continue with further recommendations from general surgery Thank you for allowing us to participate in the care of the patient, the GI service will sign off, gastroenterology will not be available at the hospital this weekend and through next week. If further evaluation by gastroenterology is required the patient will need transfer as per the primary team's discretion. Dr. Daisy Bentley I agree with the dictator's note, documented as a scribe by Lizet Humphreys.
[2023-11-05] MEDS: SODIUM CHLORIDE 0.9% 1,000 ML IV SCH ×3 (17:07→23:21)
--- NOTE | 2023-11-05 22:32 | P.PN ---
Subjective Progress Note Date: 11/04/23 Patient is a 53-year-old male with a PMH of Crohn's disease status post multiple abdominal surgeries including colovesicular fistula, and hyperlipidemia repair who presents to the emergency room with complaints of abdominal pain with nausea and vomiting. Patient notes he has been experiencing gradually worsening intermittent nausea and vomiting over the past 2 along with cramping like diffuse abdominal discomfort. He has been following with Dr. Bentley and was doing well until this time on azathioprine. Reports that abdominal discomfort is usually after eating solid or semisolid food but that most recently he also now has discomfort with liquids. Pain is rated at a 5 out of 10 with nonbloody emesis. Has lost up to 10 pounds in the last 2 months with 3-4 episodes of bilious vomiting daily over the past few days. Reports single bowel movement daily without blood or mucus. Denies fever or chills. Also denies chest discomfort, shortness of breath. CT abdomen and pelvis revealed findings consistent with small bowel obstruction with transition point noted in the upper pelvis suspected due to adhesions. Laboratory evaluation was remarkable for hyperkalemia 5.4 (hemolyzed), lactic acid 1.6, ALT 77, AST 65 and an unremarkable UA. 11/03/2023 Patient is currently lying in the bed. Awake alert and oriented x 3. NG tube is in place. Draining clear to greenish fluid. Abdominal pain is better. No complaints of nausea or vomiting. Patient has not passed flatus. Patient has been afebrile. No nausea or vomiting or diarrhea. Chest x-ray showed NG tube sidehole at GE junction level. Recommend further advancement by 4 cm. Laboratory data reviewed. General surgery and GI is on board. 11/04/2023 Patient is resting in bed. Awake alert. Not passing flatus. Abdominal pain slightly improved but still has bloating. No episodes of vomiting. Continued on NG tube. Laboratory showed WBC 8.5 hemoglobin 13.9 and platelets 299 Sodium 138 potassium 4.4 chloride 104 bicarb is 25 BUN 12 and creatinine 0.8 and blood sugar is 116. CRP less than 0.5 and ESR 10. Not elevated. Patient is being continued on antibiotics in the form of cefazolin and metronidazole. Patient is scheduled for expiratory laparotomy later today. Current medications reviewed. Objective - Vital Signs Vital signs: Vital Signs Temp 98.4 F 11/04/23 12:09 Pulse 68 11/04/23 13:00 Resp 16 11/04/23 13:00 BP 119/68 11/04/23 13:00 Pulse Ox 95 11/04/23 13:00 FiO2 Intake & Output 11/03/23 11/04/23 11/04/23 18:59 06:59 18:59 Intake Total 900 1150 Output Total 1050 Balance -1816 367 3072 Intake: IV 1150 Intake, IV Titration 900 Amount Sodium Chloride 0.9% 1, 900 000 ml @ 75 mls/hr IV . [id number] [facility] Rx#:[id number] Oral 0 Output: Gastric Drainage 1050 Other: Voiding Method Toilet # Voids 3 - Exam PHYSICAL EXAMINATION: Patient is lying in the bed comfortably, no acute distress, awake alert and oriented.. HEENT: Normocephalic. Neck is supple. Pupils reactive. Nostrils clear. Oral cavity is moist. Neck reveals no JVD, carotid bruits, or thyromegaly. CHEST EXAMINATION: Trachea is central. Symmetrical expansion. Lung morton clear to auscultation and percussion. CARDIAC: Normal S1, S2 with no gallops. No murmurs ABDOMEN: Soft. Bowel sounds diminished. Nontender. No organomegaly. No abdominal bruits. Extremities: reveal no edema. No clubbing or cyanosis Neurologically awake, alert, oriented x3 with well-coordinated movements. No focal deficits noted Skin: No rash or skin lesions. Psychiatric: Coperative. Nonsuicidal, Musculoskeletal: No joint swelling or deformity. Normal range of motion. - Labs CBC & Chem 7: 11/05/23 06:18 11/05/23 06:18 Labs: Abnormal Lab Results - Last 24 Hours (Table) 11/04/23 11/04/23 Range/Units 04:40 04:40 RBC 4.27 L (4.40-5.60) X 10*6/uL MCV 97.2 H (80.0-97.0) FL MCH 32.6 H (27.0-32.0) pg Lymphocytes # 0.72 L (0.90-5.00) X 10*3/uL Monocytes # 0.15 L (0.20-1.00) X 10*3/uL Eosinophils # 0 L (0.04-0.35) X 10*3/uL Glucose 116 H (74-99) mg/dL Assessment and Plan Assessment: Acute small bowel obstruction likely due to adhesions and history 3 surgeries of prior colectomy. Crohn's disease exacerbation. on Imuron as an outpatient. GI and DVT prophylaxis Plan: Patient will be continued on IV hydration and nothing by mouth. Continue with NG tube. CRP and sed rate not elevated. Solu-Medrol has been discontinued.. Patient will be continued on antibiotics. General surgery is planning for expiratory laparotomy sometime today. Continue to follow closely.
--- NOTE | 2023-11-05 22:38 | P.PN ---
Subjective Progress Note Date: 11/05/23 Patient is a 53-year-old male with a PMH of Crohn's disease status post multiple abdominal surgeries including colovesicular fistula, and hyperlipidemia repair who presents to the emergency room with complaints of abdominal pain with nausea and vomiting. Patient notes he has been experiencing gradually worsening intermittent nausea and vomiting over the past 2 along with cramping like diffuse abdominal discomfort. He has been following with Dr. Bentley and was doing well until this time on azathioprine. Reports that abdominal discomfort is usually after eating solid or semisolid food but that most recently he also now has discomfort with liquids. Pain is rated at a 5 out of 10 with nonbloody emesis. Has lost up to 10 pounds in the last 2 months with 3-4 episodes of bilious vomiting daily over the past few days. Reports single bowel movement daily without blood or mucus. Denies fever or chills. Also denies chest discomfort, shortness of breath. CT abdomen and pelvis revealed findings consistent with small bowel obstruction with transition point noted in the upper pelvis suspected due to adhesions. Laboratory evaluation was remarkable for hyperkalemia 5.4 (hemolyzed), lactic acid 1.6, ALT 77, AST 65 and an unremarkable UA. 11/03/2023 Patient is currently lying in the bed. Awake alert and oriented x 3. NG tube is in place. Draining clear to greenish fluid. Abdominal pain is better. No complaints of nausea or vomiting. Patient has not passed flatus. Patient has been afebrile. No nausea or vomiting or diarrhea. Chest x-ray showed NG tube sidehole at GE junction level. Recommend further advancement by 4 cm. Laboratory data reviewed. General surgery and GI is on board. 11/04/2023 Patient is resting in bed. Awake alert. Not passing flatus. Abdominal pain slightly improved but still has bloating. No episodes of vomiting. Continued on NG tube. Laboratory showed WBC 8.5 hemoglobin 13.9 and platelets 299 Sodium 138 potassium 4.4 chloride 104 bicarb is 25 BUN 12 and creatinine 0.8 and blood sugar is 116. CRP less than 0.5 and ESR 10. Not elevated. Patient is being continued on antibiotics in the form of cefazolin and metronidazole. Patient is scheduled for expiratory laparotomy later today. 11/05/2023 Patient is status post expiratory laparotomy, extensive lysis of adhesions, small bowel resection, diverting loop ileostomy. Postoperative day 1. Patient is currently sitting in the chair. Awake alert and oriented x 3. And is tube is in place. Patient states that his abdominal bloating and tightness is better today.NG tube with 400 cc of brownish fluid collection. Not passing flatus or no stool noted in the colostomy bag. Patient has been afebrile. Currently oxygen at 3 L via nasal cannula. Patient is on normal saline at 125 cc/h. Laboratory data showed WBC 11.5 hemoglobin 13.0 and platelets 283 Sodium 142 potassium 4.3 chloride 104 bicarb is 27.9 BUN 13.8 and creatinine 1.0. Current medications reviewed. Objective - Vital Signs Vital signs: Vital Signs Temp 98.0 F 11/05/23 11:45 Pulse 44 L 11/05/23 11:45 Resp 16 11/05/23 11:45 BP 107/64 11/05/23 11:45 Pulse Ox 95 11/05/23 11:45 FiO2 Intake & Output 11/04/23 11/05/23 11/05/23 18:59 06:59 18:59 Intake Total 2074 Output Total 1025 1350 700 Balance 1050 -1350 -700 Intake: IV 2074 Output: Gastric Drainage 700 700 Drainage 350 Right Abdomen 350 Urine 275 1000 Uretheral (Tucker) 500 Estimated Blood Loss 50 Other: Voiding Method Indwelling Catheter Indwelling Catheter - Exam PHYSICAL EXAMINATION: Patient is lying in the bed comfortably, no acute distress, awake alert and o riented.. HEENT: Normocephalic. Neck is supple. Pupils reactive. Nostrils clear. Oral cavity is moist. Neck reveals no JVD, carotid bruits, or thyromegaly. CHEST EXAMINATION: Trachea is central. Symmetrical expansion. Lung morton clear to auscultation and percussion. CARDIAC: Normal S1, S2 with no gallops. No murmurs ABDOMEN: Soft. Bowel sounds diminished. Ileostomy in place. Nontender. No organomegaly. No abdominal bruits. Extremities: reveal no edema. No clubbing or cyanosis Neurologically awake, alert, oriented x3 with well-coordinated movements. No focal deficits noted Skin: No rash or skin lesions. Psychiatric: Coperative. Nonsuicidal, Musculoskeletal: No joint swelling or deformity. Normal range of motion. - Labs CBC & Chem 7: 11/05/23 06:18 11/05/23 06:18 Labs: Abnormal Lab Results - Last 24 Hours (Table) 11/05/23 11/05/23 Range/Units 06:18 06:18 WBC 11.54 H (4.50-10.00) X 10*3/uL RBC 3.96 L (4.40-5.60) X 10*6/uL MCV 102.3 H (80.0-97.0) FL MCH 32.8 H (27.0-32.0) pg Immature Gran # 0.05 H (0.00-0.04) X 10*3/uL Neutrophils # 10.00 H (1.80-7.70) X 10*3/uL Lymphocytes # 0.64 L (0.90-5.00) X 10*3/uL Eosinophils # 0.01 L (0.04-0.35) X 10*3/uL Glucose 130 H (70-110) mg/dL Calcium 8.2 L (8.7-10.3) mg/dL Assessment and Plan Assessment: Acute small bowel obstruction likely due to adhesions and history 3 surgeries of prior colectomy. Patient is status post expiratory laparotomy, extensive lysis of adhesions, small bowel resection, diverting loop ileostomy on 11/04/2023 Crohn's disease exacerbation. on Imuron as an outpatient. GI and DVT prophylaxis Plan: Patient will be continued on IV hydration and nothing by mouth. Continue with NG tube. CRP and sed rate not elevated. Solu-Medrol has been discontinued.. Patient will be continued on antibiotics. Currently on Zosyn. Patient is status post expiratory laparotomy and lysis of additions and diverting loop ileostomy. Follow-up CBC and BMP tomorrow. Time with Patient: Greater than 30
[2023-11-06] MEDS: HYDROmorphone 1 MG/ML 1 ML SYRINGE IVP PRN ×4 (00:29→16:46)
[2023-11-06] MEDS: METOPROLOL SUCCINATE (ER) 25 MG TAB.ER.24H PO SCH (08:49)
[2023-11-06] MEDS: PIPERACILLIN-TAZOBACTAM 3.375 GM in SODIUM CHLORIDE 0.9% 100 ML IVPB SCH ×3 (09:01→23:52)
[2023-11-06] MEDS: ASPIRIN 81 MG PO SCH (09:02)
[2023-11-06] MEDS: PRAVASTATIN SODIUM 80 MG TAB PO SCH (09:02)
[2023-11-06] MEDS: azaTHIOprine 50 MG TAB PO SCH (09:02)
[2023-11-06] MEDS: ENOXAPARIN 40 MG/0.4 ML SYRINGE SQ SCH (09:02)
[2023-11-06] MEDS: PANTOPRAZOLE 40 MG/10 ML VIAL IV SCH (09:02)
[2023-11-06 09:15] LABS: Basophils # (A) 0.03 X 10*3/uL (0.00-0.10); Basophils % (A) 0.4 %; Eosinophils # (A) 0.06 X 10*3/uL (0.04-0.35); Eosinophils % (A) 0.8 %; HCT 38.9 % (39.6-50.0); HGB 12.5 g/dL (13.0-17.0); Lymphocytes # (A) 1.59 X 10*3/uL (0.90-5.00); MCH 32.3 pg (27.0-32.0); MCHC 32.1 g/dL (32.0-37.0); MCV 100.5 FL (80.0-97.0); Mean Platelet Volume 9.7 FL (9.5-12.2); Monocytes % (A) 12.6 %; NRBC Per 100 WBC 0 X 10*3/uL (0.00-0.01); Neutrophils # (A) 5.25 X 10*3/uL (1.80-7.70); Neutrophils % (A) 65.9 %; Platelet Count 247 X 10*3/uL (140-440); RBC 3.87 X 10*6/uL (4.40-5.60); RDW 12.8 % (11.5-14.5); WBC 7.95 X 10*3/uL (4.50-10.00)
[2023-11-06 09:24] LABS: BUN/Creat Ratio 14.11 Ratio (12.00-20.00); Blood Urea Nitrogen 12.7 mg/dL (9.0-27.0); Calcium 8.6 mg/dL (8.7-10.3); Carbon Dioxide 31.2 mmol/L (21.6-31.8); Chloride 105 mmol/L (96-109); Glucose 88 mg/dL (70-110); Potassium 4.3 mmol/L (3.5-5.5); Sodium 144 mmol/L (135-145)
--- NOTE | 2023-11-06 11:45 | P.PN ---
Progress Note - Text Patient is postop day #1 exporter laparotomy with loop ileostomy for potential Crohn's. NG tube has minimal output. We'll clamp NG tube and trial clears. Abdomen is soft. Incision is intact. Vitals are stable.
[2023-11-06] MEDS: SODIUM CHLORIDE 0.9% 1,000 ML IV SCH (13:38)
[2023-11-06] MEDS: HYDROmorphone 0.5 MG/0.5 ML SYRINGE IVP PRN (19:46)
--- NOTE | 2023-11-06 20:44 | PN ---
PROGRESS NOTE DATE OF SERVICE: 11/06/2023 SUBJECTIVE: This is a 53-year-old gentleman, who was admitted after small-bowel obstruction, had surgery, lysis of adhesions, small bowel resection, diverting loop colostomy. No chest pain. No palpitations. No fever. OBJECTIVE: VITAL SIGNS: Pulse is 69, blood pressure 103/60, respirations 16. CHEST: Clear to auscultation. CARDIOVASCULAR: S1, S2. ABDOMEN: Soft, status post surgery. LABORATORY DATA: Reviewed. ASSESSMENT: 1. Small bowel obstruction, status post exploratory laparotomy, extensive lysis of adhesions, small bowel resection, diverting loop colostomy. 2. Crohn disease acute exacerbation. 3. Elevated WBC. RECOMMENDATIONS: Recommend to continue current management and continue symptomatic treatment, otherwise repeat labs. Continue with NG tube. Closely follow with Surgery. Further recommendations to follow. MMODL / IJN: [id number] /
[2023-11-07] MEDS: SODIUM CHLORIDE 0.9% 1,000 ML IV SCH ×4 (00:09→21:08)
[2023-11-07] MEDS: HYDROmorphone 0.5 MG/0.5 ML SYRINGE IVP PRN ×3 (00:09→15:10)
[2023-11-07] MEDS: PIPERACILLIN-TAZOBACTAM 3.375 GM in SODIUM CHLORIDE 0.9% 100 ML IVPB SCH ×3 (08:07→23:53)
[2023-11-07] MEDS: ENOXAPARIN 40 MG/0.4 ML SYRINGE SQ SCH (08:08)
[2023-11-07] MEDS: ASPIRIN 81 MG PO SCH (08:08)
[2023-11-07] MEDS: azaTHIOprine 50 MG TAB PO SCH (08:08)
[2023-11-07] MEDS: PRAVASTATIN SODIUM 80 MG TAB PO SCH (08:08)
[2023-11-07] MEDS: METOPROLOL SUCCINATE (ER) 25 MG TAB.ER.24H PO SCH (08:08)
[2023-11-07] MEDS: PANTOPRAZOLE 40 MG/10 ML VIAL IV SCH (08:08)
[2023-11-07 10:28] LABS: Basophils # (A) 0.03 X 10*3/uL (0.00-0.10); Basophils % (A) 0.4 %; Eosinophils # (A) 0.13 X 10*3/uL (0.04-0.35); Eosinophils % (A) 1.7 %; HCT 38.3 % (39.6-50.0); HGB 12.5 g/dL (13.0-17.0); Lymphocytes % (A) 23.6 %; MCH 32.4 pg (27.0-32.0); MCHC 32.6 g/dL (32.0-37.0); MCV 99.2 FL (80.0-97.0); Mean Platelet Volume 9.9 FL (9.5-12.2); Monocytes # (A) 0.81 X 10*3/uL (0.20-1.00); Monocytes % (A) 10.6 %; NRBC Per 100 WBC 0 X 10*3/uL (0.00-0.01); Neutrophils # (A) 4.85 X 10*3/uL (1.80-7.70); Neutrophils % (A) 63.4 %; Platelet Count 233 X 10*3/uL (140-440); RBC 3.86 X 10*6/uL (4.40-5.60); RDW 12.6 % (11.5-14.5); WBC 7.64 X 10*3/uL (4.50-10.00)
[2023-11-07 10:37] LABS: Calcium 8.4 mg/dL (8.7-10.3); Carbon Dioxide 28.2 mmol/L (21.6-31.8); Chloride 103 mmol/L (96-109); Glucose 86 mg/dL (70-110); Potassium 3.4 mmol/L (3.5-5.5); Sodium 140 mmol/L (135-145)
--- NOTE | 2023-11-07 11:56 | PN ---
PROGRESS NOTE DATE OF SERVICE: 11/07/2023 SUBJECTIVE: This is a 53-year-old gentleman who was admitted with small bowel obstruction surgery. The patient has still NG tube. No chest pain, no palpitations. OBJECTIVE: VITAL SIGNS: Pulse 54, blood pressure 130/76, respirations 17. CHEST: Clear to auscultation. CARDIOVASCULAR: S1, S2. ABDOMEN: Soft, status post surgery. LABORATORY DATA: Hemoglobin 12.5. ASSESSMENT: 1. Small bowel obstruction, status post exploratory laparotomy, extensive lysis of adhesions, small bowel resection, diverting loop colostomy on NG tube. 2. Crohn's disease, acute exacerbation. 3. Elevated WBC. RECOMMENDATIONS: Recommend to continue current management, continue symptomatic treatment, otherwise recommend repeat labs and closely monitor surgery. Further recommendations to follow. DVT prophylaxis. MMODL / IJN: [id number] /
--- NOTE | 2023-11-07 13:00 | P.PN ---
Subjective Progress Note Date: 11/07/23 CHIEF COMPLAINT: Small bowel stricture HISTORY OF PRESENT ILLNESS: The patient is a 53-year-old female status post bowel resection for stenosis. He has been tolerating ice chips and water without abdominal pain. He reports NG has been clamped for 2 days and no nausea. He reports ostomy is working. He had small bowel obstruction. ROS: No reports of nausea and vomiting. No fevers or chills. No new chest pain. No productive sputum PHYSICAL EXAM: VITAL SIGNS: Reviewed CONSTITUTIONAL: Well developed and in no acute distress. EYES: Conjuctivae without sclera icterus. Extraocular movements grossly intact. HEAD, EARS, NOSE, THROAT: Moist buccal mucosa. Head is atraumatic, normocephalic. Hears conversational speech. No nasal drainage. RESPIRATORY: Non-labored respirations and equal bilateral excursions. CARDIOVASCULAR: Palpable 2+ radial pulses. ABDOMEN: Ostomy intact MUSCULOSKELETAL: No gross deformity of the lower extremities noted. No clubbing. No cyanosis. SKIN: Good skin turgor. Well perfused. NEUROLOGIC: Cranial nerves II through XII grossly intact. No focal or lateraliz ing signs. PSYCH: Appropriate affect. Alert and oriented to person, place and time. CLINICAL LABS: Reviewed. ASSESSMENT: 1. Crohn's disease 2. Small bowel obstruction PLAN: 1. Discontinue NG tube 2. Start liquids and advance as tolerated. Objective - Vital Signs Vital signs: Vital Signs Temp 98.6 F 11/07/23 08:00 Pulse 54 L 11/07/23 08:00 Resp 17 11/07/23 08:00 BP 131/75 11/07/23 08:00 Pulse Ox 91 L 11/07/23 08:25 FiO2 Intake & Output 11/06/23 11/07/23 11/07/23 18:59 06:59 18:59 Intake Total 1120 Output Total 2725 150 800 Balance -2725 970 -800 Intake: Intake, IV Titration 1000 Amount Piperacillin-Tazobactam 3 100 .375 gm In Sodium Chloride 0.9% 100 ml @ 25 mls/hr IVPB Q8HR [facility] Rx# :[id number] Sodium Chloride 0.9% 1, 900 000 ml @ 125 mls/hr IV . Q8H [facility] Rx#:[id number] Oral 120 Output: Urine 1700 400 Uretheral (Tucker) 400 Stool 1025 150 400 Other: Voiding Method Indwelling Catheter Toilet Urinal Urinal # Voids 2 - Labs CBC & Chem 7: 11/07/23 05:19 11/07/23 05:19 Labs: Abnormal Lab Results - Last 24 Hours (Table) 11/07/23 11/07/23 Range/Units 05:19 05:19 RBC 3.86 L (4.40-5.60) X 10*6/uL Hgb 12.5 L (13.0-17.0) g/dL Hct 38.3 L (39.6-50.0) % MCV 99.2 H (80.0-97.0) FL MCH 32.4 H (27.0-32.0) pg Potassium 3.4 L (3.5-5.5) mmol/L BUN 8.0 L (9.0-27.0) mg/dL BUN/Creatinine Ratio 10.00 L (12.00-20.00) Ratio Calcium 8.4 L (8.7-10.3) mg/dL
[2023-11-07] MEDS: HYDROmorphone 1 MG/ML 1 ML SYRINGE IVP PRN ×2 (20:00→23:59)
[2023-11-08] MEDS: ASPIRIN 81 MG PO SCH (08:47)
[2023-11-08] MEDS: PRAVASTATIN SODIUM 80 MG TAB PO SCH (08:47)
[2023-11-08] MEDS: PIPERACILLIN-TAZOBACTAM 3.375 GM in SODIUM CHLORIDE 0.9% 100 ML IVPB SCH ×2 (08:47→15:39)
[2023-11-08] MEDS: ENOXAPARIN 40 MG/0.4 ML SYRINGE SQ SCH (08:48)
[2023-11-08] MEDS: SODIUM CHLORIDE 0.9% 1,000 ML IV SCH ×3 (08:52→20:54)
[2023-11-08] MEDS: HYDROmorphone 0.5 MG/0.5 ML SYRINGE IVP PRN ×2 (08:53→21:06)
[2023-11-08] MEDS: PANTOPRAZOLE 40 MG/10 ML VIAL IV SCH (08:54)
[2023-11-08 09:01] LABS: Basophils # (A) 0.03 X 10*3/uL (0.00-0.10); Basophils % (A) 0.5 %; Eosinophils # (A) 0.21 X 10*3/uL (0.04-0.35); Eosinophils % (A) 3.2 %; HCT 38.5 % (39.6-50.0); HGB 13.1 g/dL (13.0-17.0); Lymphocytes # (A) 1.21 X 10*3/uL (0.90-5.00); Lymphocytes % (A) 18.7 %; MCH 32.3 pg (27.0-32.0); MCV 95.1 FL (80.0-97.0); Mean Platelet Volume 9.7 FL (9.5-12.2); Monocytes # (A) 0.78 X 10*3/uL (0.20-1.00); Monocytes % (A) 12.1 %; NRBC Per 100 WBC 0 X 10*3/uL (0.00-0.01); Neutrophils # (A) 4.22 X 10*3/uL (1.80-7.70); Neutrophils % (A) 65.2 %; Platelet Count 258 X 10*3/uL (140-440); RBC 4.05 X 10*6/uL (4.40-5.60); RDW 12.2 % (11.5-14.5); WBC 6.47 X 10*3/uL (4.50-10.00)
[2023-11-08 09:11] LABS: BUN/Creat Ratio 8.57 Ratio (12.00-20.00); Calcium 8.4 mg/dL (8.7-10.3); Carbon Dioxide 25.7 mmol/L (21.6-31.8); Chloride 104 mmol/L (96-109); Glucose 90 mg/dL (70-110); Potassium 3.7 mmol/L (3.5-5.5); Sodium 138 mmol/L (135-145)
[2023-11-08] MEDS: METOPROLOL SUCCINATE (ER) 25 MG TAB.ER.24H PO SCH (10:41)
[2023-11-08] MEDS: azaTHIOprine 50 MG TAB PO SCH (12:14)
[2023-11-08] MEDS: HYDROmorphone 1 MG/ML 1 ML SYRINGE IVP PRN (14:12)
--- NOTE | 2023-11-08 16:30 | P.PN ---
Subjective Progress Note Date: 11/08/23 CHIEF COMPLAINT: Small bowel stricture HISTORY OF PRESENT ILLNESS: The patient is a 53-year-old male status post bowel resection for stricture. He tolerated full liquid diet. No nausea. Has appropriate incisional pain. He reports leakage from his ostomy due to poor fit of bag. ROS: No reports of nausea and vomiting. No fevers or chills. No new chest pain. No productive sputum PHYSICAL EXAM: VITAL SIGNS: Reviewed CONSTITUTIONAL: Well developed and in no acute distress. EYES: Conjuctivae without sclera icterus. Extraocular movements grossly intact. HEAD, EARS, NOSE, THROAT: Moist buccal mucosa. Head is atraumatic, normocephalic. Hears conversational speech. No nasal drainage. RESPIRATORY: Non-labored respirations and equal bilateral excursions. CARDIOVASCULAR: Palpable 2+ radial pulses. ABDOMEN: Ostomy intact MUSCULOSKELETAL: No gross deformity of the lower extremities noted. No clubbing. No cyanosis. SKIN: Good skin turgor. Well perfused. NEUROLOGIC: Cranial nerves II through XII grossly intact. No focal or lateralizing signs. PSYCH: Appropriate affect. Alert and oriented to person, place and time. CLINICAL LABS: Reviewed. WBC an Hgb normal ASSESSMENT: 1. Crohn's disease 2. Small bowel obstruction PLAN: 1. Advance to regular diet. 2. Disposition home with home health care in 24 hrs. Objective - Vital Signs Vital signs: Vital Signs Temp 97.9 F 11/08/23 12:19 Pulse 64 11/08/23 12:19 Resp 17 11/08/23 12:19 BP 105/70 11/08/23 12:19 Pulse Ox 96 11/08/23 12:19 FiO2 Intake & Output 11/07/23 11/08/23 11/08/23 18:59 06:59 18:59 Output Total 800 1000 Balance -800 -1000 Output: Urine 400 Stool 400 1000 Other: Voiding Method Urinal Urinal # Voids 4 4 # Bowel Movements 550 - Labs CBC & Chem 7: 11/08/23 05:56 11/08/23 05:56 Labs: Abnormal Lab Results - Last 24 Hours (Table) 11/08/23 11/08/23 Range/Units 05:56 05:56 RBC 4.05 L (4.40-5.60) X 10*6/uL Hct 38.5 L (39.6-50.0) % MCH 32.3 H (27.0-32.0) pg BUN 6.0 L (9.0-27.0) mg/dL BUN/Creatinine Ratio 8.57 L (12.00-20.00) Ratio Calcium 8.4 L (8.7-10.3) mg/dL
--- NOTE | 2023-11-08 21:38 | PN ---
PROGRESS NOTE DATE OF SERVICE: 11/08/2023 SUBJECTIVE: This is a 53-year-old gentleman who was admitted with small bowel obstruction, had surgery. NG tube is removed. No chest pain, no palpitation. OBJECTIVE: VITAL SIGNS: Pulse is 64, blood pressure 105/70, respirations 17. CHEST: Clear to auscultation. CARDIOVASCULAR: S1, S2. ABDOMEN: Soft. NERVOUS SYSTEM: Nonfocal. LABORATORY DATA: Reviewed. ASSESSMENT: 1. Small bowel obstruction, status post exploratory laparotomy, extensive lysis of adhesions, small bowel resection, diverting loop colostomy, status post NG tube. 2. Crohn's disease, acute exacerbation. 3. Elevated WBC, improved. RECOMMENDATIONS: Recommended to continue current management, continue symptomatic treatment. Closely follow with surgery. Incentive spirometry. DVT prophylaxis. Further recommendations to follow. MMODL / IJN: [id number] /
[2023-11-09] MEDS: PIPERACILLIN-TAZOBACTAM 3.375 GM in SODIUM CHLORIDE 0.9% 100 ML IVPB SCH ×2 (00:10→08:02)
[2023-11-09] MEDS: SODIUM CHLORIDE 0.9% 1,000 ML IV SCH ×2 (03:12→10:37)
[2023-11-09 07:51] VITALS: RESP 16
[2023-11-09] MEDS: HYDROmorphone 0.5 MG/0.5 ML SYRINGE IVP PRN (08:00)
[2023-11-09] MEDS: PANTOPRAZOLE 40 MG/10 ML VIAL IV SCH (08:02)
[2023-11-09] MEDS: METOPROLOL SUCCINATE (ER) 25 MG TAB.ER.24H PO SCH (08:02)
[2023-11-09] MEDS: ASPIRIN 81 MG PO SCH (08:02)
[2023-11-09] MEDS: PRAVASTATIN SODIUM 80 MG TAB PO SCH (08:02)
[2023-11-09] MEDS: ENOXAPARIN 40 MG/0.4 ML SYRINGE SQ SCH (08:02)
[2023-11-09] MEDS: azaTHIOprine 50 MG TAB PO SCH (08:03)
[2023-11-09 13:50] VITALS: BP 121/82; PULSE 68; TEMP 97.9
--- NOTE | 2023-11-10 09:26 | P.DS ---
Providers Date of admission: 11/02/23 15:43 Expected date of discharge: 11/09/23 Attending physician: Navin Shah Consults: 11/02/23 17:09 Consult Physician Stat Consulting Provider: Quincy Escobar Consult Reason/Comments: small bowel obstruction Do you want consulting provider notified?: Already Contacted Consult Physician Stat Consulting Provider: Sheila Bentley Consult Reason/Comments: small bowel obstrustion Do you want consulting provider notified?: Yes Primary care physician: Zeynep Valencia Hospital Course: Final diagnosis Small bowel obstruction, status post expiratory laparotomy, extensive lysis of adhesions, small bowel resection and diverting loop colostomy Crohn's disease, acute exacerbation Obesity with a BMI of 31.9 Leukocytosis, improved Hyperlipidemia Hypertension History of myocardial infarction GI prophylaxis DVT prophylaxis Full code Discharge disposition Patient is being discharged in a stable condition with guarded prognosis to home. Patient will follow-up with Dr. Valencia in the outpatient setting upon discharge. Patient is to follow-up with general surgery as well as GI in the outpatient setting as scheduled. Patient to continue on Protonix along with Augmentin for the next 5 days to complete the course. Total time taken is greater than 35 minutes. Hospital course This is a 53-year-old male who was recently admitted with abdominal pain and small bowel obstruction and underwent exploratory laparotomy with extensive lysis of adhesions with small bowel resection diverting loop colostomy with general surgery. Patient has been started on diet and tolerating and has received education regarding ostomy and is being arranged for outpatient home care. Patient had previous ostomies and is familiar with the care needed for ostomy. Family at bedside receiving education as well. Patient will continue oral Augmentin twice daily for the next 5 days to complete the course. Please refer to other consultation notes for further HPI. Currently no reports of chest pain, shortness of breath, or palpitations. Patient is afebrile. No reports of nausea or vomiting and patient is tolerating diet. Patient will be discharged home today. Guarded prognosis Physical exam: Gen: This is a 53-year-old male who is awake, alert and oriented 3, well- developed, well-nourished, obese HEENT: Head is atraumatic, normocephalic. Pupils equal, round. Sclerae is anicteric. NECK: Supple. No JVD. No lymphadenopathy. No thyromegaly. LUNGS: Clear to auscultation. No wheezes or rhonchi. No intercostal retractions. HEART: Regular rate and rhythm. No murmur. ABDOMEN: Soft. Bowel sounds are present. No masses. Mild tenderness noted on palpation. Ostomy noted with liquid stool. EXTREMITIES: No pedal edema. No calf tenderness. NEUROLOGICAL: Patient is awake, alert and oriented x3. Cranial nerves 2 through 12 are grossly intact. Please refer to medication reconciliation sheet for a list of medications. The impression and plan of care has been dictated by Naima Tolentino, Nurse Practitioner as directed. Dr. Pablo MD I have performed a history and examination and MDM of this patient, discussed the same with the dictator, and agree with the dictator's assessment and plan as written ,documented as a scribe. Based on total visit time, I have performed more than 50% of the visit. Patient Condition at Discharge: Stable Plan - Discharge Summary Discharge Rx Participant: No New Discharge Prescriptions: New Pantoprazole [Protonix] 40 mg PO DAILY #30 tab Amoxic-Pot Clav 875-125Mg [Augmentin 875-125] 1 tab PO Q12HR 5 Days #10 tab HYDROcodone/APAP 5-325MG [[place] 5-325] 1 tab PO Q6HR PRN #5 tab PRN Reason: Pain Continue azaTHIOprine [Imuran] 100 mg PO DAILY Aspirin [Adult Low Dose Aspirin EC] 81 mg PO DAILY Ergocalciferol [Vitamin D2 (1250 Mcg = 48276 Iu)] 1,250 mcg PO FR Metoprolol Succinate (ER) [Toprol XL] 12.5 mg PO DAILY Cyanocobalamin [Vitamin B-12 Injection] 1,000 mcg IM SA Pravastatin Sodium 80 mg PO DAILY Dicyclomine [Bentyl] 20 mg PO Q8H PRN PRN Reason: IBS Discontinued Ciprofloxacin HCl [Cipro] 500 mg PO BID metroNIDAZOLE [Flagyl] 500 mg PO TID Discharge Medication List Aspirin [Adult Low Dose Aspirin EC] 81 mg PO DAILY 08/16/19 [History] azaTHIOprine [Imuran] 100 mg PO DAILY 08/16/19 [History] Cyanocobalamin [Vitamin B-12 Injection] 1,000 mcg IM SA 11/02/23 [History] Dicyclomine [Bentyl] 20 mg PO Q8H PRN 11/02/23 [History] Ergocalciferol [Vitamin D2 (1250 Mcg = 07555 Iu)] 1,250 mcg PO FR 11/02/23 [History] Metoprolol Succinate (ER) [Toprol XL] 12.5 mg PO DAILY 11/02/23 [History] Pravastatin Sodium 80 mg PO DAILY 11/02/23 [History] Amoxic-Pot Clav 875-125Mg [Augmentin 875-125] 1 tab PO Q12HR 5 Days #10 tab 11/09/23 [Rx] HYDROcodone/APAP 5-325MG [[place] 5-325] 1 tab PO Q6HR PRN #5 tab 11/09/23 [Rx] Pantoprazole [Protonix] 40 mg PO DAILY #30 tab 11/09/23 [Rx] Follow up Appointment(s)/Referral(s): Quincy Escobar MD [Medical Doctor] - 11/11/23 8:45 am Zeynep Valencia MD [Primary Care Provider] - 1-2 days (please call the office to schedule a follow up appointment) Sheila Bentley MD [STAFF PHYSICIAN] - 12/01/23 2:15 pm () [facility] Visiting Nurse, [NON-STAFF] - 1-2 Days ([facility] will call you to schedule your in home nursing visits.) Ambulatory/Diagnostic Orders: Complete Blood Count w/diff [LAB.AMB] Time Frame: 3 Days, Location: None Selected Patient Instructions/Handouts: Hydrocodone/Acetaminophen (By mouth), Amoxicillin/Clavulanate Potassium (By mouth), Pantoprazole (By mouth) Activity/Diet/Wound Care/Special Instructions: Activity Limited until follow-up Follow-up with primary care provider on discharge Follow-up with general surgery outpatient Continue regular diet Follow-up with GI outpatient Continue home care Discharge Disposition: HOME WITH HOME HEALTH SERVICES Plan of Treatment: Ostomy care patients ileostmy supplies: Cavion jamison prep [id number], Ostomy 4 Inch pouch [id number], ostomy powder [id number], ostomy grades 1 thru 6 home teacher when needed ost [id number], ostomy jamison seal 2 " [id number] and measuring guide. changed 11/09/2023 change appliance 3-5 days or if leaking.
== END 2023-11-09 14:27 | disposition home health service (06) | DRG 330 ==
LOC: EC 09:33 → 5NMEDONC 15:43
PROVIDERS: ADMIT Hospitalist; ATTEND Hospitalist
PROC: 0D9670Z Drainage of Stomach with Drainage Device, Via Natural or Artificial Opening (ICD-10-PCS; 2023-11-03)
PROC: 0DN80ZZ Release Small Intestine, Open Approach (ICD-10-PCS; principal; 2023-11-04 13:05)
PROC: 0DB80ZZ Excision of Small Intestine, Open Approach (ICD-10-PCS; principal; 2023-11-04 13:05)
PROC: 0D1B0Z4 Bypass Ileum to Cutaneous, Open Approach (ICD-10-PCS; principal; 2023-11-04 13:05)
DX: K50.012 Crohn's disease of small intestine with intestinal obstruction (principal); K56.50 Intestinal adhesions [bands], unspecified as to partial versus complete obstruction; E66.9 Obesity, unspecified; E78.5 Hyperlipidemia, unspecified; I10 Essential (primary) hypertension; E87.5 Hyperkalemia; I25.2 Old myocardial infarction; M92.529 Juvenile osteochondrosis of tibia tubercle, unspecified leg; Z68.31 Body mass index [BMI] 31.0-31.9, adult; Z79.82 Long term (current) use of aspirin; Z79.624 Long term (current) use of inhibitors of nucleotide synthesis
CPT/HCPCS: 36415; 64999; 74177; 80048; 80053; 81003; 82150; 83605; 83690; 85025; 85610; 85652; 85730; 86140; 86850; 86900; 86901; 88307; 94760; 96361; 96374; 96375; 96376; 99285

== ENCOUNTER → 2023-11-11 | Outpatient (CLI) | payer BC ==
[2023-11-11 15:09] LABS: Basophils # (A) 0.05 X 10*3/uL (0.00-0.10); Basophils % (A) 0.6 %; Eosinophils # (A) 0.27 X 10*3/uL (0.04-0.35); Eosinophils % (A) 3.3 %; HCT 43.4 % (39.6-50.0); HGB 14.2 g/dL (13.0-17.0); Lymphocytes # (A) 1.63 X 10*3/uL (0.90-5.00); Lymphocytes % (A) 19.9 %; MCH 32.1 pg (27.0-32.0); MCHC 32.7 g/dL (32.0-37.0); MCV 98.2 FL (80.0-97.0); Monocytes # (A) 0.84 X 10*3/uL (0.20-1.00); Monocytes % (A) 10.3 %; NRBC Per 100 WBC 0 X 10*3/uL (0.00-0.01); Neutrophils # (A) 5.36 X 10*3/uL (1.80-7.70); Neutrophils % (A) 65.4 %; Platelet Count 332 X 10*3/uL (140-440); RBC 4.42 X 10*6/uL (4.40-5.60); RDW 12.7 % (11.5-14.5); WBC 8.19 X 10*3/uL (4.50-10.00)
== END | disposition home or self-care (01) ==
LOC: LABWHC1 09:34
PROVIDERS: ATTEND Family Medicine
DX: E87.6 Hypokalemia (principal); K56.609 Unspecified intestinal obstruction, unspecified as to partial versus complete obstruction
CPT/HCPCS: 36415; 85025

== ENCOUNTER → 2023-12-31 | Outpatient (CLI) | payer BC ==
[2023-12-31 19:01] LABS: HCT 48.9 % (39.6-50.0); HGB 16.4 g/dL (13.0-17.0); MCH 31.9 pg (27.0-32.0); MCHC 33.5 g/dL (32.0-37.0); MCV 95.1 FL (80.0-97.0); Mean Platelet Volume 9.6 FL (9.5-12.2); NRBC Per 100 WBC 0 X 10*3/uL (0.00-0.01); Platelet Count 379 X 10*3/uL (140-440); RBC 5.14 X 10*6/uL (4.40-5.60); RDW 12.1 % (11.5-14.5); WBC 6.87 X 10*3/uL (4.50-10.00)
[2023-12-31 20:07] LABS: Anion Gap 13.2 mmol/L (4.00-12.00); Carbon Dioxide 24.8 mmol/L (21.6-31.8); Potassium 4.5 mmol/L (3.5-5.5)
== END | disposition home or self-care (01) ==
LOC: LABWHC1 14:28
PROVIDERS: ATTEND Surgery
DX: Z01.812 Encounter for preprocedural laboratory examination (principal); K50.012 Crohn's disease of small intestine with intestinal obstruction; R94.31 Abnormal electrocardiogram [ECG] [EKG]
CPT/HCPCS: 36415; 80051; 85027; 93005

== ENCOUNTER → 2024-01-08 | Outpatient (CLI) | payer BC ==
--- NOTE | 2024-01-08 10:11 | XR ---
EXAMINATION TYPE: XR chest 2V DATE OF EXAM: 01/08/2024 9:11 AM CLINICAL INDICATION:Male, 53 years old with history of Z01.818 PRE SURGICAL; [facility] COMPARISON: None TECHNIQUE: XR chest 2V. Frontal and lateral views of the chest.. FINDINGS: Lines/Tubes/Devices: No indwelling lines are seen. Heart/mediastinum: Heart size is normal. Mediastinum appears normal. Pulmonary vascularity: Not increased, Lungs/Pleura: There is no evidence of pleural effusion, focal consolidation, or pneumothorax. Linear opacities suggesting mild subsegmental atelectasis in the right mid and left lower lung zones. Musculoskeletal: No acute osseous abnormality demonstrated in the limits of the exam. Mild degenerat jamaal changes of the shoulders and spine. Other findings: None. IMPRESSION: 1. Mild linear subsegmental atelectasis in the right mid and left lower lung zones. 2. Otherwise no acute cardiopulmonary abnormality.
== END | disposition home or self-care (01) ==
LOC: RADXRMAIN 08:58
PROVIDERS: ATTEND Family Medicine
DX: Z01.818 Encounter for other preprocedural examination (principal); J98.11 Atelectasis
CPT/HCPCS: 71046

== ENCOUNTER → 2024-01-13 | Outpatient (CLI) | payer BC | END | disposition home or self-care (01) | LOC: LABPAT 07:56 | PROVIDERS: ATTEND Surgery | DX: Z01.812 Encounter for preprocedural laboratory examination (principal); K50.012 Crohn's disease of small intestine with intestinal obstruction | CPT/HCPCS: 86850; 86900; 86901 ==

== ENCOUNTER → 2024-01-21 | Outpatient (CLI) | payer BC ==
--- NOTE | 2024-01-21 10:28 | CT ---
EXAMINATION TYPE: CT abdomen pelvis w con DATE OF EXAM: 01/21/2024 COMPARISON: 11/02/2023 HISTORY: 53-year-old male CROHN'S DISEASE OF SMALL INTESTINE TECHNIQUE: Contiguous axial scanning of the abdomen and pelvis following administration of 100 ml Iso saba 300 IV contrast. Rectal contrast was also administered. Delayed images through the kidneys and co matthew/sagittal reconstructions performed. CT DLP: 1641.3 mGycm Automated exposure control for dose reduction was used. FINDINGS: Heart normal size without pericardial effusion. Mild dependent atelectasis. No pleural effu donna. Liver mildly enlarged at 19.7 cm with mildly diminished attenuation suggesting some underlying fatty infiltration. No focal lesion. Portal venous system is patent. No biliary ductal dilatation. Cholecys tectomy clips. Adrenal glands, left kidney, spleen, and pancreas within normal limits. Benign 1.6 cm cortical cyst anterior right kidney. Symmetric uptake and excretion of contrast from alecia th kidneys. There is submucosal fat deposition along the second and third portion of the duodenum, either sequela of recurrent inflammation versus idiopathic change. Previous midline laparotomy scar. Some associated soft tissue thickening suggesting scar tissue. There are multiple prior bowel surgeries. There is previous resection at the ileocolonic junction wit h what appears to be a sjog-xe-[id number] anastomosis at the lower ascending colon. There is an approximate 9 cm long segment of collapsed small bowel that shows submucosal fat deposition followed by a second , more proximal small bowel to small bowel anastomosis of the ileum. The small bowel just before this anastomosis shows circumferential thickening for a span of 6 cm, axial image 73 and coronal images 4 4 through 48. There is a diverting right mid abdominal ileostomy. There is also an additional site of previous resection and reanastomosis at the distal sigmoid colon. Mild circumferential wall thickening of the rectum and colon back to the level of the hepatic flexur e. No pericolic inflammatory change. Rectal contrast has made its way down to the mid to lower ascend ing colon. Mild midabdominal lacey mesentery probably reactive change. Scattered prominent but nonenlarged mesen teric lymph nodes. Bladder collapsed. Prostate gland enlargement 5.2 cm wide. No abnormal fluid collection in the pelvis or pelvic lymphadenopathy. Prominent perirectal fat proliferation possibly secondary to chronic infl ammation. No abnormal fluid collection in the pelvis or pelvic lymphadenopathy. Bones: Facet arthropathy mid to lower lumbar spine. Mild degenerative disc disease lower thoracic and upper lumbar spine. IMPRESSION: 1. MULTIPLE PRIOR BOWEL SURGERIES. PREVIOUS RESECTION OF THE ILEOCECAL JUNCTION WITH A [id number]-RFOA S MALL BOWEL TO COLON ANASTOMOSIS AT THE LOWER ASCENDING COLON. THERE IS A SECOND, MORE UPSTREAM SMALL BOWEL TO SMALL BOWEL ANASTOMOSIS OF THE DISTAL ILEUM. SMALL BOWEL PROXIMAL TO THIS SECOND ANASTOMOSIS IS THICKENED AND MILDLY INFLAMED SUGGESTING MILD ILEITIS FOR A SPAN OF 6 CM. 2. PREVIOUS RESECTION AND REANASTOMOSIS AT THE DISTAL SIGMOID COLON. THERE IS CONCURRENT MILD DIFFUSE COLITIS FROM THE HEPATIC FLEXURE OF THE COLON THROUGH THE RECTUM. NO ABSCESS OR FREE AIR. 3. DIVERTING RIGHT MID ABDOMINAL ILEOSTOMY. THE PREVIOUS SMALL BOWEL OBSTRUCTION ON 11/02/2023 HAS RE SOLVED.
== END | disposition home or self-care (01) ==
LOC: RADCTMAIN 07:47
PROVIDERS: ATTEND Surgery
DX: K63.89 Other specified diseases of intestine (principal); K50.012 Crohn's disease of small intestine with intestinal obstruction; Z98.890 Other specified postprocedural states; Z93.2 Ileostomy status
CPT/HCPCS: 74177; Q9967

== ENCOUNTER 2024-01-24 07:30 | Inpatient (IN) | payer BC ==
[2024-01-24] MEDS ORDERED: LIDOCAINE 1% (10MG/ML) FOR IV START INTRADERMA PRN (08:47)
[2024-01-24] MEDS ORDERED: MIDAZOLAM 2 MG/2 ML VIAL IV PRN (08:47)
[2024-01-24] MEDS: LACTATED RINGERS 1,000 ML IV ONE ×2 (10:00→13:45)
[2024-01-24] MEDS: ONDANSETRON 4 MG/2 ML VIAL IVP ONE (10:45)
[2024-01-24] MEDS: DEXAMETHASONE SOD PHOSPHATE 4 MG/ML 1 ML VIAL IV ONE (10:45)
[2024-01-24] MEDS: ACETAMINOPHEN TAB 500 MG TAB PO PRN (10:45)
[2024-01-24] MEDS: ALVIMOPAN 12 MG CAPSULE PO PRN (10:45)
[2024-01-24] MEDS: MIDAZOLAM 2 MG/2 ML VIAL IVP ONE (10:51)
--- NOTE | 2024-01-24 11:13 | P.ANPRN ---
Procedure Note - Anesthesia - Nerve Block Performed Bilateral Erector Spinae Single Time Out Performed: Yes Date of Procedure: 01/24/24 Procedure Start Time: 10:50 Procedure Stop Time: 10:58 Location of Patient: PreOp Indication: Acute Post-Operative Pain, Analgesia, Requested by Surgeon Sedation Type: Sedate with meaningful contact maintained Preparation: Sterile Prep Position: Prone Catheter: None Needle Types: Pajunk Needle Gauge: 21 Ultrasound used to visualize needle placement: Yes Ultrasound used to observe medication spread: Yes Injectate: 0.5% Ropivacaine (see comment for volume) (Ropiv 20ml+decadron 4mg---- each side) Blood Aspirated: No Pain Paresthesia on Injection Noted: No Resistance on Injection: Normal Image Stored and Saved: Yes Events: Uneventful and Well Tolerated
[2024-01-24] MEDS: metroNIDAZOLE-NS PMX 500 MG in SALINE 1 100ML.BAG IVPB PRN (11:23)
[2024-01-24] MEDS: HEPARIN SODIUM,PORCINE 5,000 UNIT/ML 1 ML VIAL SQ PRN (11:24)
[2024-01-24] MEDS ORDERED: ROCURONIUM 10 MG/ML (5 ML VIAL) IV ONE (12:07)
[2024-01-24] MEDS ORDERED: fentaNYL (PF) 50 MCG/ML 2 ML AMP ONE (12:07)
[2024-01-24] MEDS ORDERED: NEOSTIGMINE 1 MG/ML 10 ML VIAL ONE (12:07)
[2024-01-24] MEDS ORDERED: SUCCINYLCHOLINE CHLORIDE 200 MG/10 ML VIAL IV ONE (12:07)
[2024-01-24] MEDS ORDERED: PROPOFOL 10 MG/ML 20 ML VIAL IV ONE (12:07)
[2024-01-24] MEDS ORDERED: DEXAMETHASONE SOD PHOSPHATE 4 MG/ML 1 ML VIAL ONE (12:07)
[2024-01-24] MEDS ORDERED: HYDROmorphone (PF) 1 MG/ML ONE (12:07)
[2024-01-24] MEDS ORDERED: ROPIVACAINE 5 MG/ML 30 ML VIAL ONE (12:07)
[2024-01-24] MEDS ORDERED: LIDOCAINE 1% INJ 10MG/ML (20 ML MDV) ONE (12:07)
[2024-01-24] MEDS ORDERED: GLYCOPYRROLATE 0.2 MG/ML 2 ML VIAL ONE (12:07)
[2024-01-24] MEDS ORDERED: MIDAZOLAM 2 MG/2 ML VIAL ONE (12:07)
[2024-01-24] MEDS: SODIUM CHLORIDE 0.9% 50 ML with metroNIDAZOLE-NS PMX 500 MG IV ONE (12:15)
[2024-01-24] MEDS ORDERED: METOCLOPRAMIDE 5 MG/ML 2 ML VIAL IVP PRN (14:03)
[2024-01-24] MEDS ORDERED: ONDANSETRON 4 MG/2 ML VIAL IVP PRN (14:03)
--- NOTE | 2024-01-24 14:03 | P.OP ---
Date of Procedure: 01/24/24 Procedure(s) Performed: PREOPERATIVE DIAGNOSIS: Loop ileostomy, Crohn's POSTOPERATIVE DIAGNOSIS: Same PROCEDURE: Reversal of loop ileostomy, lysis of adhesions, small bowel resection SURGEON: Luz EBL: Oralia cc ANESTHESIA: General COMPLICATIONS: None OPERATIVE PROCEDURE: Patient placed on the operative table in the supine position. The patient had a Tucker catheter placed. The ostomy was closed using a 2-0 Vicryl pursestring suture. The abdomen was prepped and draped sterilely. An elliptical incision was made encompassing the ileostomy and the adjacent skin. Dissection through the subcutaneous tissues took place using electrocautery. LigaSure was also used sparingly. We dissected down to the lev el of the fascia. Using sharp dissection I was able to dissect around the ostomy. No serosal tears were seen with this dissection. Lysis of adhesions and took place beneath the level of the fascia circumferentially so we had adequate length. Following that the proximal and distal limb of the small bowel was divided using a linear 75 stapler. The mesentery was divided using LigaSure. The ileostomy was passed off. Following that a ozij-is-mfwc anastomosis took place by removing the antimesenteric portion of the staple line. The linear 75 stapler was fired. The remaining defect was closed using a TX 60 stapler. The TX 60 staple line was imbricated using interrupted 3-0 GI silk sutures. The bowel was reduced beneath the level of the fascia and peritoneal surface. Adequate size of the stoma was palpated and confirmed. No bleeding was seen. Irrigation took place at different occasions during this case. The fascia was reapproximated using interrupted [id number]-wq-pdqsi #1 Vicryl sutures. The subcutaneous layers were closed using 2-0 [address] sutures. I did place a drain which was Nicol anterior to the fascia exiting from both medial and lateral sites. This was sutured to the skin at both medial and lateral sides using a 3-0 silk stitch. The subcutaneous tissues were further closed using 3-0 Vicryl sutures and the skin using a running 4-0 nylon stitch. Sterile dressings were applied. DISPOSITION: Stable to recovery room
[2024-01-24] MEDS: HYDROmorphone 0.5 MG/0.5 ML SYRINGE IVP PRN (14:10)
[2024-01-24] MEDS: LACTATED RINGERS 1,000 ML IV SCH (15:21)
[2024-01-24] MEDS: KETOROLAC 15 MG/ML 1 ML VIAL IVP PRN (15:36)
[2024-01-24] MEDS: HEPARIN SODIUM,PORCINE 5,000 UNIT/ML 1 ML VIAL SQ SCH (15:36)
[2024-01-24] MEDS: D5-0.45% NACL WITH KCL 20MEQ/L 1,000 ML IV SCH (15:37)
[2024-01-24 15:43] LABS: Basophils % (A) 0 %; Eosinophils % (A) 0 %; HGB 15.8 gm/dL (13.0-17.5); Lymphocytes % (A) 14 %; MCH 32.7 pg (25.0-35.0); MCHC 33.5 g/dL (31.0-37.0); MCV 97.4 fL (80.0-100.0); Mean Platelet Volume 6.9; Monocytes # (A) 0.1 k/uL (0-1.0); Monocytes % (A) 1 %; Neutrophils % (A) 84 %; Platelet Count 254 k/uL (150-450); RBC 4.83 m/uL (4.30-5.90); RDW 12.3 % (11.5-15.5); WBC 7.2 k/uL (3.8-10.6)
[2024-01-24 15:54] LABS: African American GFR (CKD) >90 (>60 ml/min/1.73 sqM); Anion Gap 11 mmol/L; Blood Urea Nitrogen 8 mg/dL (9-20); Calcium 9.4 mg/dL (8.4-10.2); Carbon Dioxide 22 mmol/L (22-30); Chloride 104 mmol/L (98-107); Glucose 144 mg/dL (74-99); Non-African American GFR(CKD) >90 (>60 ml/min/1.73 sqM); Potassium 3.8 mmol/L (3.5-5.1); Sodium 137 mmol/L (137-145)
[2024-01-24 18:57] VITALS: RESP 16
[2024-01-24] MEDS: HYDROmorphone 1 MG/ML 1 ML SYRINGE IVP PRN (19:06)
[2024-01-24] MEDS: FAMOTIDINE 20 MG/2 ML VIAL IV SCH (19:59)
--- NOTE | 2024-01-25 06:01 | P.CONS ---
History of Present Illness - Reason for Consult Consult date: 01/24/24 Medical management Requesting physician: Quincy Escobar - Chief Complaint Post loop ileostomy, chronic respiratory chronic disease multiple complicat - History of Present Illness HISTORY OF PRESENT ILLNESS: 53-year-old male with history of Crohn disease with multiple complication related to bowel obstruction, recurrent diarrhea, recurrent surgery in the past who was hospitalized last October 2023 with complication related to bowel obstruction secondary to complication related to Crohn disease. Also patient had a history of atherosclerotic heart disease with silent [place] never had any further workup for it, mildly elevated blood pressure and elevated cholesterol. Patient apparently has been seen Dr. Escobar for complication related from his last hospitalization and multiple complication related to scar tissue was scheduled for loop ileostomy and was cleared for surgery by in our office all lab EKG were reviewed. Patient ended up having surgery today successfully with no major complication. He was admitted to the floor afterward on IV fluid, medication reconciliation was done patient resting comfortably and hemodynamically stable. REVIEW OF SYSTEMS: CONSTITUTIONAL: Overweight does not look in any respiratory distress EYES: No icterus sclerae, no conjunctivitis. EARS, NOSE, MOUTH, THROAT, and FACE: No sore throat, lymphadenopathy, carotid bruits or deformity. RESPIRATORY: No SOB cough or wheezes. CARDIOVASCULAR: No CP, Palpitation, PND, Orthopnea, or angina. GASTROINTESTINAL: Post loop ileostomy with across the brain without any bleeding. GENITOURINARY: Negative for Hematuria or UTI, no kidney stones. INTEGUMENT/BREAST: Negative for any muscular injury with mild osteoarthritis.. HEMATOLOGIC/LYMPHATIC: Negative for bleed or purpura. MUSCULOSKELTAL: Negative for Myalgia or arthralgia. NEURLOGICAL: No LOC, Sz or syncope, blurred vision dizziness or abnormality.. BEHAVIORAL/PSYCH: Negative. ENDOCRINE: Negative. Family history: His mother and have 70 had a chronic lower back pain with atherosclerotic heart disease. Patient does not know much about his father. He was on the chart for his parents and he does not have any children. Social history: Patient does not smoke, no alcohol abuse, no illicit drug use he is and lives with his . PHYSICAL EXAMINATION: General Appearance: Alert, cooperative, no distress, appears stated age. Neck HEENT: Supple, no lymphadenopathy, no thyroid enlargement, no carotid bruits. Lungs: Clear to auscultation without crackles or wheezes no rhonchi, no deformity. Chest Wall: Chest wall normal expansion with deep inspiration no tenderness and no deformity was found on exam, no costochondral pain or discomfort. Heart: Regular rate and rhythm, S1, S2 normal, no murmur, rub or gallop. Back: Symmetric, no curvature, ROM normal, no CVA tenderness. Abdomen: Soft, non-tender, absent bowel sounds at this point with dressing in the right lower area without any bleeding on it the area slightly bit tender at surgical site but no major tenderness rebound or rigidity. Extremities: Extremities normal, atraumatic, no cyanosis or edema. Pulses: 2+ and symmetric. Skin: Skin color, texture, tugor normal, no rashes or lesions. Neurologic: Alert oriented x3 cranial nerves II through XII intact, no motor deficit, no abnormal balance or gait. ASSESSMENT AND PLAN: _Post loop ileostomy: Successful surgery with no major complication resume home meds continue to watch patient hemodynamic status carefully. _History of chronic disease: Still on immunosuppressive medication with Imuran which will be resumed as of tomorrow. _Atherosclerotic heart disease: He is not on any medication currently continue to watch for any recurrent chest pain or angina and again continue to watch patient hemodynamic status carefully. _History of anemia: Most likely from his colitis and from the use of his Imuran, patient will be continue on iron supplement along with multivitamin watch CBC repeated in the morning. _Hyperlipidemia: Is not on any medication at this point. _BPH: Continue to watch for any urinary retention. _GI prophylaxis: Patient to be continued on Protonix 40 mg daily. _DVT prophylaxis: Continue Lovenox 40 mg subcutaneous daily. _Pulmonary prophylaxis: Incentive spirometry bedside and early mobilization. CODE STATUS: Full code. Dr. Escobar thank you much for the consult if I can be any further help to please let me know. Past Medical History Past Medical History: Hyperlipidemia, Hypertension, Myocardial Infarction ([place]) Additional Past Medical History / Comment(s): hx of Crohn's, states silent [place] Last Myocardial Infarction Date:: unknown History of Any Multi-Drug Resistant Organisms: None Reported Past Surgical History: Bowel Resection, Cholecystectomy, Hernia Repair, Orthopedic Surgery Additional Past Surgical History / Comment(s): knee sx for lon-schlatter, hand sx, has had colostomy in past and reversal Past Anesthesia/Blood Transfusion Reactions: No Reported Reaction Additional Past Anesthesia/Blood Transfusion Reaction / Comm: has had blood trasfusion with no issues Smoking Status: Never smoker - Past Family History Mother Family Medical History: Hyperlipidemia Medications and Allergies Home Medications Medication Instructions Recorded Confirmed Type Aspirin [Adult Low Dose Aspirin EC] 81 mg PO DAILY 08/16/19 01/24/24 History azaTHIOprine [Imuran] 100 mg PO DAILY 08/16/19 01/24/24 History Cyanocobalamin [Vitamin B-12 1,000 mcg IM SA 11/02/23 01/24/24 History Injection] Ergocalciferol [Vitamin D2 (1250 1,250 mcg PO FR 11/02/23 01/24/24 History Mcg = 93879 Iu)] Metoprolol Succinate (ER) [Toprol 12.5 mg PO DAILY 11/02/23 01/24/24 History XL] Pravastatin Sodium 80 mg PO DAILY 11/02/23 01/24/24 History Enceptra (Unk) 1 injection IM Q56D 01/17/24 01/24/24 History Allergies Allergy/AdvReac Type Severity Reaction Status Date / Time No Known Allergies Allergy Verified 01/24/24 10:09 Physical Exam Vitals: Vital Signs Temp Pulse Pulse Pulse Resp BP BP 01/24/24 17:56 97.4 F L 75 16 102/63 01/24/24 17:13 70 108/66 01/24/24 16:45 61 98/59 01/24/24 16:15 62 100/63 01/24/24 16:00 69 110/67 01/24/24 15:31 68 112/68 01/24/24 15:16 97.8 F 69 17 128/75 01/24/24 14:45 62 16 107/62 01/24/24 14:29 56 L 16 117/66 01/24/24 14:14 57 L 16 121/70 01/24/24 13:59 97 F L 88 16 135/79 01/24/24 11:08 65 16 125/85 01/24/24 10:00 97.8 F 74 17 139/84 Pulse Ox 01/24/24 17:56 95 01/24/24 17:13 01/24/24 16:45 90 L 01/24/24 16:15 90 L 01/24/24 16:00 92 L 01/24/24 15:31 01/24/24 15:16 97 01/24/24 14:45 94 L 01/24/24 14:29 100 01/24/24 14:14 100 01/24/24 13:59 100 01/24/24 11:08 97 01/24/24 10:00 96 Intake and Output 01/24/24 01/24/24 01/24/24 06:59 14:59 22:59 Intake Total 1800 375 Output Total 30 Balance 1770 375 Intake: IV 1800 Intake, IV Titration 375 Amount D5-0.45% NaCl with KCl 375 20Meq/l 1,000 ml @ 125 mls/hr IV [facility] Rx#: [id number] Output: Estimated Blood Loss 30 Other: Weight 115.4 kg Results CBC & Chem 7: 01/24/24 15:18 01/24/24 15:18 Labs: Abnormal Lab Results - Last 24 Hours (Table) 01/24/24 Range/Units 15:18 BUN 8 L (9-20) mg/dL Glucose 144 H (74-99) mg/dL
--- NOTE | 2024-01-25 08:19 | P.PN ---
Subjective Progress Note Date: 01/25/24 HISTORY OF PRESENT ILLNESS: 53-year-old male with history of Crohn disease with multiple complication related to bowel obstruction, recurrent diarrhea, recurrent surgery in the past who was hospitalized last October 2023 with complication related to bowel obstruction secondary to complication related to Crohn disease. Also patient had a history of atherosclerotic heart disease with silent [place] never had any further workup for it, mildly elevated blood pressure and elevated cholesterol. Patient apparently has been seen Dr. Escobar for complication related from his last hospitalization and multiple complication related to scar tissue was scheduled for loop ileostomy and was cleared for surgery by in our office all lab EKG were reviewed. Patient ended up having surgery today successfully with no major complication. He was admitted to the floor afterward on IV fluid, med ication reconciliation was done patient resting comfortably and hemodynamically stable. 01/25/2024: He is doing well, slept the night with no problem, pain is under better control, his incision still clean with no sign of bleeding. He is able to tolerate oral intake between fluid and food which will be titrated gradually. Patient will be switched to probably oral pain meds as of today will titrate activity and mobility and prepare hopefully for home in the next 24 hours. REVIEW OF SYSTEMS: CONSTITUTIONAL: Overweight does not look in any respiratory distress EYES: No icterus sclerae, no conjunctivitis. EARS, NOSE, MOUTH, THROAT, and FACE: No sore throat, lymphadenopathy, carotid bruits or deformity. RESPIRATORY: No SOB cough or wheezes. CARDIOVASCULAR: No CP, Palpitation, PND, Orthopnea, or angina. GASTROINTESTINAL: Post loop ileostomy with across the brain without any bleeding. GENITOURINARY: Negative for Hematuria or UTI, no kidney stones. INTEGUMENT/BREAST: Negative for any muscular injury with mild osteoarthritis.. HEMATOLOGIC/LYMPHATIC: Negative for bleed or purpura. MUSCULOSKELTAL: Negative for Myalgia or arthralgia. NEURLOGICAL: No LOC, Sz or syncope, blurred vision dizziness or abnormality.. BEHAVIORAL/PSYCH: Negative. ENDOCRINE: Negative. PHYSICAL EXAMINATION: General Appearance: Alert, cooperative, no distress, appears stated age. Neck HEENT: Supple, no lymphadenopathy, no thyroid enlargement, no carotid bruits. Lungs: Clear to auscultation without crackles or wheezes no rhonchi, no deformity. Chest Wall: Chest wall normal expansion with deep inspiration no tenderness and no deformity was found on exam, no costochondral pain or discomfort. Heart: Regular rate and rhythm, S1, S2 normal, no murmur, rub or gallop. Back: Symmetric, no curvature, ROM normal, no CVA tenderness. Abdomen: Soft, non-tender, absent bowel sounds at this point with dressing in the right lower area without any bleeding on it the area slightly bit tender at surgical site but no major tenderness rebound or rigidity. Extremities: Extremities normal, atraumatic, no cyanosis or edema. Pulses: 2+ and symmetric. Skin: Skin color, texture, tugor normal, no rashes or lesions. Neurologic: Alert oriented x3 cranial nerves II through XII intact, no motor deficit, no abnormal balance or gait. ASSESSMENT AND PLAN: _Post loop ileostomy: Successful surgery with no major complication resume home meds continue to watch patient hemodynamic status carefully. _History of chronic disease: Still on immunosuppressive medication with Imuran which will be resumed as of tomorrow. _Atherosclerotic heart disease: He is not on any medication currently continue to watch for any recurrent chest pain or angina and again continue to watch patient hemodynamic status carefully. Further study and testing will need to be done as an outpatient. _History of anemia: Most likely from his colitis and from the use of his Imuran, patient will be continue on iron supplement along with multivitamin watch CBC repeated in the morning. CBC to be done tomorrow. _Hyperlipidemia: Is not on any medication at this point. _BPH: Continue to watch for any urinary retention. Pain management: Patient be switched to oral pain meds prepared for discharge in the next day. Objective - Vital Signs Vital signs: Vital Signs Temp 98.1 F 01/25/24 02:00 Pulse 75 01/25/24 02:00 Resp 16 01/25/24 02:00 BP 104/61 01/25/24 02:00 Pulse Ox 93 L 01/25/24 02:00 FiO2 Intake & Output 01/24/24 01/24/24 01/25/24 06:59 18:59 06:59 Intake Total 2175 Output Total 30 Balance 2145 Weight 115.4 kg Intake: IV 1800 Intake, IV Titration 375 Amount D5-0.45% NaCl with KCl 375 20Meq/l 1,000 ml @ 125 mls/hr IV .Q8H [facility] 234 B[facility]S AT [facility] Rx#: [id number] Output: Estimated Blood Loss 30 Other: Voiding Method Toilet # Voids 3 # Bowel Movements 1 - Labs CBC & Chem 7: 01/24/24 15:18 01/24/24 15:18 Labs: Abnormal Lab Results - Last 24 Hours (Table) 01/24/24 Range/Units 15:18 BUN 8 L (9-20) mg/dL Glucose 144 H (74-99) mg/dL
[2024-01-25] MEDS: METOPROLOL SUCCINATE (ER) 25 MG TAB.ER.24H PO SCH (08:40)
[2024-01-25] MEDS: ASPIRIN 81 MG PO SCH (08:42)
[2024-01-25] MEDS: PRAVASTATIN SODIUM 80 MG TAB PO SCH (08:42)
[2024-01-25] MEDS: azaTHIOprine 50 MG TAB PO SCH (08:42)
[2024-01-25] MEDS: ALVIMOPAN 12 MG CAPSULE PO SCH (08:42)
[2024-01-25 11:08] LABS: Basophils % (A) 0 %; Eosinophils % (A) 0 %; HCT 47.7 % (39.0-53.0); HGB 15.6 gm/dL (13.0-17.5); Lymphocytes # (A) 1.5 k/uL (1.0-4.8); Lymphocytes % (A) 13 %; MCH 32.3 pg (25.0-35.0); MCHC 32.7 g/dL (31.0-37.0); MCV 98.8 fL (80.0-100.0); Mean Platelet Volume 7.3; Monocytes # (A) 0.8 k/uL (0-1.0); Monocytes % (A) 7 %; Neutrophils # (A) 9.3 k/uL (1.3-7.7); Neutrophils % (A) 79 %; Platelet Count 325 k/uL (150-450); RBC 4.83 m/uL (4.30-5.90); RDW 12.7 % (11.5-15.5); WBC 11.8 k/uL (3.8-10.6)
[2024-01-25 11:23] LABS: ALT 21 U/L (4-49); AST 27 U/L (17-59); African American GFR (CKD) >90 (>60 ml/min/1.73 sqM); Albumin 4.5 g/dL (3.5-5.0); Albumin/Globulin Ratio 1.4; Alkaline Phosphatase 68 U/L (38-126); Anion Gap 10 mmol/L; Blood Urea Nitrogen 10 mg/dL (9-20); Calcium 9.7 mg/dL (8.4-10.2); Carbon Dioxide 24 mmol/L (22-30); Chloride 103 mmol/L (98-107); Globulin 3.3 g/dL; Glucose 119 mg/dL (74-99); Non-African American GFR(CKD) >90 (>60 ml/min/1.73 sqM); Potassium 4.2 mmol/L (3.5-5.1); Sodium 137 mmol/L (137-145); Total Bilirubin 0.6 mg/dL (0.2-1.3); Total Protein 7.8 g/dL (6.3-8.2)
--- NOTE | 2024-01-25 12:17 | P.PN ---
Subjective Progress Note Date: 01/25/24 CHIEF COMPLAINT: Loop ileostomy, Crohn's HISTORY OF PRESENT ILLNESS: Patient is postop day #1 status post reversal of loop ileostomy, lysis of adhesions and small bowel resection. He reports his pain is controlled. He did have bowel movements. Denies any nausea or vomiting. Tolerated full liquids. Afebrile. WBC is up at 11.8 Hgb 15.6 platelets 325 PHYSICAL EXAM: VITAL SIGNS: Reviewed. GENERAL: Well-developed in no acute distress. ABDOMEN: Soft. Nondistended. Incisional dressing clean dry and intact NEUROLOGIC: Alert and oriented. Cranial nerves II through XII grossly intact. ASSESSMENT: 1. Loop ileostomy, Crohn's PLAN: -Continue full liquid diet -Continue pain management -Encourage patient to use incentive spirometer -Encourage patient to ambulate -Add norco for oral pain med -DVT prophylaxis subcu heparin Physician Blow Pit Operator note has been reviewed by physician. Signing provider agrees with the documented findings, assessment, and plan of care. Objective - Vital Signs Vital signs: Vital Signs Temp 97.8 F 01/25/24 07:05 Pulse 52 L 01/25/24 07:05 Resp 16 01/25/24 07:05 BP 108/63 01/25/24 07:05 Pulse Ox 98 01/25/24 07:05 FiO2 Intake & Output 01/24/24 01/25/24 01/25/24 18:59 06:59 18:59 Intake Total 2175 1750 Output Total 30 Balance 2145 1750 Weight 115.4 kg Intake: IV 1800 Intake, IV Titration 375 1250 Amount D5-0.45% NaCl with KCl 375 1250 20Meq/l 1,000 ml @ 125 mls/hr IV .Q8H [facility] Rx#: [id number] Oral 500 Output: Estimated Blood Loss 30 Other: Voiding Method Toilet Toilet # Voids 3 # Bowel Movements 1 - Labs CBC & Chem 7: 01/25/24 10:45 01/25/24 10:45 Labs: Abnormal Lab Results - Last 24 Hours (Table) 01/24/24 01/25/24 01/25/24 Range/Units 15:18 10:45 10:45 WBC 11.8 H (3.8-10.6) k/uL Neutrophils # 9.3 H (1.3-7.7) k/uL BUN 8 L (9-20) mg/dL Glucose 144 H 119 H (74-99) mg/dL
[2024-01-25 12:57] VITALS: BP 106/63; PULSE 55; TEMP 97.6
[2024-01-25] MEDS: HYDROcodone/APAP 5-325MG 1 EACH TAB PO PRN (13:01)
--- NOTE | 2024-01-25 18:25 | P.DS ---
Providers Date of admission: 01/24/24 09:19 Expected date of discharge: 01/25/24 Attending physician: Quincy Escobar Consults: 01/24/24 14:03 Consult Physician Routine Consulting Provider: Abrahan Horvath Consult Reason/Comments: Medical management Do you want consulting provider notified?: Yes Primary care physician: [facility] Course: Patient underwent elective ileostomy reversal yesterday. Today he is moving his bowels nicely with only mild abdominal discomfort. He is ambulating in the hallways. Tolerating his diet. Will plan discharge. Patient will slowly a dvance his diet at home. Follow-up 1 week. Plan - Discharge Summary Discharge Rx Participant: No New Discharge Prescriptions: New oxyCODONE HCL [OxyIR] 5 mg PO Q6H PRN 3 Days #10 tab PRN Reason: Breakthrough Pain No Action azaTHIOprine [Imuran] 100 mg PO DAILY Aspirin [Adult Low Dose Aspirin EC] 81 mg PO DAILY Ergocalciferol [Vitamin D2 (1250 Mcg = 60421 Iu)] 1,250 mcg PO FR Metoprolol Succinate (ER) [Toprol XL] 12.5 mg PO DAILY Cyanocobalamin [Vitamin B-12 Injection] 1,000 mcg IM SA Pravastatin Sodium 80 mg PO DAILY Enceptra (Unk) 1 injection IM Q56D Discharge Medication List Aspirin [Adult Low Dose Aspirin EC] 81 mg PO DAILY 08/16/19 [History] azaTHIOprine [Imuran] 100 mg PO DAILY 08/16/19 [History] Cyanocobalamin [Vitamin B-12 Injection] 1,000 mcg IM SA 11/02/23 [History] Ergocalciferol [Vitamin D2 (1250 Mcg = 36142 Iu)] 1,250 mcg PO FR 11/02/23 [History] Metoprolol Succinate (ER) [Toprol XL] 12.5 mg PO DAILY 11/02/23 [History] Pravastatin Sodium 80 mg PO DAILY 11/02/23 [History] Enceptra (Unk) 1 injection IM Q56D 01/17/24 [History] oxyCODONE HCL [OxyIR] 5 mg PO Q6H PRN 3 Days #10 tab 01/25/24 [Rx] Follow up Appointment(s)/Referral(s): Quincy Escobar MD [Medical Doctor] - 1 Week
[2024-01-28] MEDS ORDERED: ERGOCALCIFEROL 1,250 MCG (50,000 IU) CAPSULE PO SCH (09:00)
[2024-01-29] MEDS ORDERED: CYANOCOBALAMIN 1,000 MCG/ML 1 ML VIAL IM SCH (09:00)
== END 2024-01-25 18:40 | disposition home or self-care (01) | DRG 330 ==
LOC: 2ORMAIN 09:19 → 5NMEDONC 14:54
PROVIDERS: ADMIT Surgery; ATTEND Surgery
PROC: 0DBB0ZZ Excision of Ileum, Open Approach (ICD-10-PCS; principal; 2024-01-24 11:30)
PROC: 0DB80ZZ Excision of Small Intestine, Open Approach (ICD-10-PCS; principal; 2024-01-24 11:30)
DX: Z43.2 Encounter for attention to ileostomy (principal); K50.90 Crohn's disease, unspecified, without complications; E78.5 Hyperlipidemia, unspecified; I25.10 Atherosclerotic heart disease of native coronary artery without angina pectoris; N40.0 Benign prostatic hyperplasia without lower urinary tract symptoms; I10 Essential (primary) hypertension; I25.2 Old myocardial infarction; Z79.899 Other long term (current) drug therapy; Z79.82 Long term (current) use of aspirin; Z79.624 Long term (current) use of inhibitors of nucleotide synthesis; Z79.620 Long term (current) use of immunosuppressive biologic
CPT/HCPCS: 64999; 80048; 80053; 85025; 88304

== ENCOUNTER → 2024-06-01 | Outpatient (CLI) | payer BC | END | disposition home or self-care (01) | LOC: LABWHC1 10:04 | PROVIDERS: ATTEND Internal Medicine Gastroenterology | DX: K50.80 Crohn's disease of both small and large intestine without complications (principal) | CPT/HCPCS: 36415; 85652; 86140 ==

== ENCOUNTER 2024-07-07 07:00 | Day surgery (SDC) | payer BC ==
[~2024-07-07 07:00] MED LIST changes: -GLUCAGON 1 MG/ML VIAL IM STA; +LACTATED RINGERS 1,000 ML BAG ONE
[2024-07-07] MEDS ORDERED: PROPOFOL 10 MG/ML 20 ML VIAL IV ONE (07:05)
--- NOTE | 2024-07-07 15:58 | PCN ---
PROCEDURE NOTE REQUESTING PHYSICIAN: Dr. Valencia. BRIEF HISTORY: The patient is a 53-year-old pleasant white male scheduled with longstanding history of Crohn's ileocolitis diagnosed in 2002. He is status post terminal ileal resection. 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 He is currently maintained on Remicade infusions every 8 weeks as well as azathioprine 100 mg daily, scheduled for a surveillance colonoscopy today. PROCEDURE PERFORMED: Colonoscopy with random biopsies. PREOPERATIVE DIAGNOSIS: Longstanding history of Crohn's ileocolitis, status post surgical resection in the past for stricturing disease as well as for colovesical fistula. ANESTHESIA: IV sedation per Anesthesia. DESCRIPTION OF PROCEDURE: After informed consent was obtained from the patient, he was brought in to the endoscopy unit. IV conscious sedation was administered by anesthesia under continuous monitoring. Initial digital rectal examination was normal. The Olympus CF-190 video colonoscope was then inserted into the rectum, gradually advanced into the right colon where ileocolic anastomosis was visualized. The anastomosis was widely patent. Two superficial erosions noted at the anastomosis and this was biopsied. The mucosa of the transverse colon, descending colon, and sigmoid colon appeared normal. In the proximal rectum at 18 cm from the anal verge, there was surgical anastomosis identified, which appeared widely patent with no active Crohn's disease. Rectum appeared normal. Random biopsies were done from the transverse colon to the rectum at every 10 cm interval. Retroflexion was performed in the rectum, no lesions were noted. The patient tolerated the procedure well. IMPRESSION: 1. Scattered erosions at the ileocolic anastomosis located in the right colon, status post biopsy. 2. Rest of the colon appeared normal. RECOMMENDATIONS: Findings of this examination were discussed with the patient as well as his family. He was advised to follow up with the biopsy results and if the biopsies do not show any evidence of dysplasia, recommended repeat colonoscopy in 5 years. MMODL / IJN: [id number] /
== END 2024-07-07 08:15 ==
LOC: ORWHC2ENDO 07:00
PROVIDERS: ATTEND Internal Medicine Gastroenterology
DX: K50.80 Crohn's disease of both small and large intestine without complications (principal); I10 Essential (primary) hypertension; E78.5 Hyperlipidemia, unspecified; I25.10 Atherosclerotic heart disease of native coronary artery without angina pectoris; I25.2 Old myocardial infarction; Z79.899 Other long term (current) drug therapy
CPT/HCPCS: 45380; 88305